=== PATIENT | female | born 1930 | race Caucasian/White ===

== ENCOUNTER 2016-04-24 18:54 | Inpatient (IN) | payer MEDICARE, OTHER ==
[~2016-04-24] VITALS: Ht 165.1 cm; Wt 61.2 kg
[~2016-04-24 18:54] MED LIST: HYDR-3816 PO; PRD20T PO
[2016-04-24] MEDS ORDERED: methylPREDNISolone 125 MG (Solu-MEDROL) VIAL ONE (19:07)
[2016-04-24] MEDS ORDERED: methylPREDNISolone 125 MG (Solu-MEDROL) VIAL IVP ONE (19:15)
[2016-04-24] MEDS ORDERED: RT-ALBUTEROL/IPRATROPIUM 3 ML (DUONEB) VIAL INH ONE (19:15)
--- NOTE | 2016-04-24 19:17 | ED Cough/URI ---
General Chief Complaint: Respiratory Problems Stated Complaint: SOA/COUGH/CONGESTION Nursing Triage Note: PT STATES SOA, COUGH, WHEEZING SINCE YESTERDAY. Source: patient, family Exam Limitations: no limitations History of Present Illness Time seen by provider: 19:19 Initial Comments Brought to ER by her daughter with reports of cough, wheezing, shortness of breath. Patient has been having these symptoms since yesterday and is without fever. Cough is nonproductive. Patient and her daughter are both very concerned because the patient's was just buried today following a brief respiratory illness/pneumonia. She does not wear oxygen at home but she does have a home nebulizer for when necessary use. She most recently used this one hour prior to arrival. Severity/Quality: moderate Associated Symptoms: cough, shortness of breath, wheezing Allergies and Home Medications Allergies Coded Allergies: azithromycin (Verified Allergy, Severe, EDEMA, HIVES, 05/01/15) Home Medications Hydrocodone/Acetaminophen 1 Each Tablet #14 1 EACH PO Q6H PRN PRN PAIN Prescribed by: ANGLE ANDRADE on 05/01/151721 Prednisone 20 Mg Tab #8 20 MG PO BID Take 3 tabs(60mg)daily, decrease by 1/2 tab(10mg)daily. Prescribed by: ANGLE ANDRADE on 05/01/151721 Constitutional: see HPI chillsNo fever EENTM: see HPI Respiratory: see HPI cough short of breath wheezing Cardiovascular: no symptoms reported Genitourinary: no symptoms reported Musculoskeletal: no symptoms reported Skin: no symptoms reported Psychiatric/Neurological: No Symptoms Reported Hematologic/Lymphatic: No Symptoms Reported Immunological/Allergic: no symptoms reported Past Wgpipho-Jmdkhl-Ummzze Hx Patient Social History Alcohol Use: Denies Use Recreational Drug Use: No Smoking Status: Never a Smoker 2nd Hand Smoke Exposure: No Recent Foreign Travel: No Contact w/Someone Who Travel: No Recent Infectious Disease Expo: No Recent Hopitalizations: No Surgeries HX Surgeries: Yes Surgeries: Hysterectomy Respiratory Hx Respiratory Disorders: Yes Respiratory Disorders: COPD Cardiovascular Hx Cardiac Disorders: Yes Cardiac Disorders: High Cholesterol, Hypertension Neurological Hx Neurological Disorders: Yes Neurological Disorders: Stroke Genitourinary Hx Genitourinary Disorders: No Gastrointestinal Hx Gastrointestinal Disorders: Yes Gastrointestinal Disorders: Gastroesophageal Reflux Musculoskeletal Hx Musculoskeletal Disorders: Yes (restless leg syndrome) Endocrine Hx Endocrine Disorders: No HEENT HX ENT Disorders: No Cancer Hx Cancer: No Psychosocial Hx Psychiatric Problems: Yes Behavioral Health Disorders: Anxiety Family Medical History Significant Family History: No Pertinent Family Hx Physical Exam Vital Signs Vital Sign - Last 12Hours 04/24/16 19:12 Temp 97.2 Pulse 86 Resp 26 B/P 178/83 Pulse Ox 98 O2 Delivery Nasal Cannula O2 Flow Rate 2 Capillary Refill : Less Than 3 Seconds General Appearance: WD/WN no apparent distress Eyes: Bilateral Eye EOMI, Bilateral Eye Normal Inspection, Bilateral Eye PERRL HEENT: PERRL/EOMI normal ENT inspection Neck: non-tender full range of motion Respiratory: no respiratory distress no accessory muscle use decreased breath sounds wheezing Cardiovascular: regular rate, rhythm no murmur Gastrointestinal: normal bowel sounds non tender soft Neurologic/Psychiatric: alert normal mood/affect oriented x 3 Skin: normal color warm/dry Progress/Results/Core Measures Results/Orders Lab Results Laboratory Tests Test 04/24/16 19:10 04/24/16 19:15 Range/Units Alanine Aminotransferase (ALT/SGPT) 38 0-55 U/L Albumin 3.8 3.2-4.5 G/DL Alkaline Phosphatase 60 40-136 U/L Anion Gap 11 5-14 MMOL/L Aspartate Amino Transf (AST/SGOT) 29 5-34 U/L B-Type Natriuretic Peptide 103.1 H <100.0 PG/ML BUN/Creatinine Ratio 21 Basophils # (Auto) 0.0 0.0-0.1 10^3/uL Basophils (%) (Auto) 0 0-10 % Blood Urea Nitrogen 16 7-18 MG/DL Calcium Level 9.5 8.5-10.1 MG/DL Carbon Dioxide Level 24 21-32 MMOL/L Chloride Level 99 98-107 MMOL/L Creatinine 0.77 0.60-1.30 MG/DL Eosinophils # (Auto) 0.2 0.0-0.3 10^3/uL Eosinophils (%) (Auto) 2 0-10 % Estimat Glomerular Filtration Rate > 60 Glucose Level 111 H 70-105 MG/DL Hematocrit 32 L 35-52 % Hemoglobin 10.8 L 11.5-16.0 G/DL Lymphocytes # (Auto) 0.7 L 1.0-4.0 X 10^3 Lymphocytes (%) (Auto) 8 L 12-44 % Mean Corpuscular Hemoglobin 30 25-34 PG Mean Corpuscular Hemoglobin Concent 34 32-36 G/DL Mean Corpuscular Volume 90 80-99 FL Mean Platelet Volume 9.1 7.4-10.4 FL Monocytes # (Auto) 0.9 0.0-1.0 X 10^3 Monocytes (%) (Auto) 11 0-12 % Neutrophils # (Auto) 6.4 1.8-7.8 X 10^3 Neutrophils (%) (Auto) 78 H 42-75 % Platelet Count 221 130-400 10^3/uL Potassium Level 3.9 3.6-5.0 MMOL/L Red Blood Count 3.59 L 4.35-5.85 10^6/uL Red Cell Distribution Width 14.8 H 10.0-14.5 % Sodium Level 134 L 135-145 MMOL/L Total Bilirubin 0.8 0.1-1.0 MG/DL Total Protein 6.4 6.4-8.2 G/DL Troponin I < 0.30 <0.30 NG/ML White Blood Count 8.3 4.3-11.0 10^3/uL Isma Test YES-POS Arterial Blood Base Excess 5.5 H -2.5-2.5 MMOL/L Arterial Blood HCO3 30 H 23-27 MMOL/L Arterial Blood Oxygen Saturation 99 94-100 % Arterial Blood Partial Pressure CO2 42 35-45 MMHG Arterial Blood Partial Pressure O2 104 H 79-93 MMHG Arterial Blood Total CO2 30.9 21.0-31.0 MMOL/L Arterial Blood pH 7.46 H 7.37-7.43 Blood Gas Inspired Oxygen 2L Blood Gas Patient Temperature 97.2 Blood Gas Puncture Site LT RAD Blood Gas Ventilator Setting NO My Orders Orders-PATY ALEX OPHTHALMIC PHOTOGRAPHER Cbc With Automated Diff (04/24/16 19:11) Comprehensive Metabolic Panel (04/24/16 19:11) Ua Culture If Indicated (04/24/16 19:11) Troponin I (04/24/16 19:11) BNP (04/24/16 19:11) Chest 1 View, Ap/Pa Only (04/24/16 19:11) Methylprednisolone Sod Succ (Solu-Medrol (04/24/16 19:15) Albuterol/Ipra Inhalation Soln (Duoneb I (04/24/16 19:15) Svn Sm Volume Nebulizer Rt-Rfs (04/24/16 19:11) Arterial Blood Gas (04/24/16 19:17) Ondansetron Injection (Zofran Injectio (04/24/16 19:30) Ondansetron Injection (Zofran Injectio (04/24/16 19:24) Albuterol Pre-Mix Nebs (Rt) (Proventil P (04/24/16 19:30) Svn Sm Volume Nebulizer Rt-Rfs (04/24/16 19:27) Albuterol Pre-Mix Nebs (Rt) (Proventil P (04/24/16 19:26) Ekg Tracing (04/24/16 19:36) Continuous Ekg Monitoring (04/24/16 19:36) Ketorolac Injection (Toradol Injection) (04/24/16 19:45) Ketorolac Injection (Toradol Injection) (04/24/16 19:44) Lorazepam Tablet (Ativan Tablet) (04/24/16 20:00) Lorazepam Tablet (Ativan Tablet) (04/24/16 19:47) Ceftriaxone Injection (Rocephin Injectio (04/24/16 20:00) Medications Given in ED Current Medications Medications Dose Ordered Sig/Jono Route Start Time Stop Time Status Last Admin Dose Admin Albuterol/ Ipratropium 6 ml ONCE ONCE INH 04/24/16 19:15 04/24/16 19:16 DC 04/24/16 19:20 6 ML Methylprednisolone Sodium Succinate 125 mg ONCE ONCE IVP 04/24/16 19:15 04/24/16 19:16 DC 04/24/16 19:12 125 MG Ondansetron HCl 4 mg ONCE ONCE IVP 04/24/16 19:30 04/24/16 19:31 DC 04/24/16 19:27 4 MG Vital Signs/I&O Vital Sign - Last 12Hours 04/24/16 04/24/16 04/24/16 19:12 19:20 19:32 Temp 97.2 Pulse 86 Resp 26 B/P 178/83 Pulse Ox 98 99 99 O2 Delivery Nasal Cannula O2 Flow Rate 2 3 3 Blood Pressure Mean: 114 Diagnostic Imaging Diagonstic Imaging: Xray Plain Films/CT/US/NM/MRI: chest Comments NAME: BANDAR [facility]INDRES [facility] REC#: [id number] PT STATUS: REG ER : 1930 PHYSICIAN: PATY ALEX APRN ADMIT DATE: 04/24/16/ER Draft Date of Exam:04/24/16 CHEST 1 VIEW, AP/PA ONLY INDICATION: Dyspnea, history of COPD. DISCUSSION: Single portable upright view of the chest was obtained, comparison 06/19/2014. No adverse interval change. Stable normal heart size. No focal consolidation, pleural fluid, or pneumothorax. Degenerative changes are again noted within the bilateral shoulders. IMPRESSION: 1. No acute cardiopulmonary process. Dictated on workstation # [id number] Dict: 04/24/161927 Trans: 04/24/161929 [id number] Interpreted by: CARLA BONILLA MD Electronically signed by: Departure Communication Time/Spoke to Admitting Phy: 19:57 Communication Discussed the case with Dr. Ledbetter who agrees to admit patient observation status, Progress Notes 1933-wheezing and shortness of breath significantly improved after 2 DuoNeb back -to-back however some wheezing does persist. 2 more albuterol given. 15 mg IV Toradol given for pain across her shoulders, neck and thighs she states is from tension due to her 's today. Family is very apprehensive about sending the patient home given father's recent and fatal illness with a similar presentation. Patient reports she feels anxious which is not uncommon for her. Patient does take Ativan 0.5 mg by mouth twice a day when necessary anxiety per the EMR at [facility]. I will give her a dose of this here.O2 remains 97% on 2 liters, was 94% on room air but felt that the O2 helped. ABG does not show hypercapnia or need for NIPPV. Impression Impression: Primary Impression: COPD exacerbation Disposition: ADMITTED INPATIENT Condition: Stable Decision to Admit Reason: Admit from ER (General) Decision to Admit/Date: Apr 24, 2016 Departure-Patient Inst. Referrals: SHELBY MARTIN MD (PCP/Family) Primary Care Physician PATY ALEX APRN Apr 24, 2016 19:17
[2016-04-24 19:18] LABS: BASOPHILS % (AUTO) 0 % (0-10); EOSINOPHILS # (AUTO) 0.2 10^3/uL (0.0-0.3); EOSINOPHILS % (AUTO) 2 % (0-10); LYMPHOCYTES # (AUTO) 0.7 X 10^3 (1.0-4.0); LYMPHOCYTES % (AUTO) 8 % (12-44); MEAN CORPUSCULAR HEMOGLOBIN 30 PG (25-34); MEAN CORPUSCULAR HGB CONC 34 G/DL (32-36); MEAN CORPUSCULAR VOLUME 90 FL (80-99); MEAN PLATELET VOLUME 9.1 FL (7.4-10.4); MONOCYTES # (AUTO) 0.9 X 10^3 (0.0-1.0); MONOCYTES % (AUTO) 11 % (0-12); NEUTROPHILS # (AUTO) 6.4 X 10^3 (1.8-7.8); NEUTROPHILS % (AUTO) 78 % (42-75); PLATELET COUNT 221 10^3/uL (130-400); RED BLOOD COUNT 3.59 10^6/uL (4.35-5.85); RED CELL DISTRIBUTION WIDTH 14.8 % (10.0-14.5); WHITE BLOOD COUNT 8.3 10^3/uL (4.3-11.0)
[2016-04-24 19:21] LABS: ABG BASE EXCESS 5.5 MMOL/L (-2.5-2.5); ABG HCO3 30 MMOL/L (23-27); ABG OXYGEN SATURATION 99 % (94-100); ABG PCO2 42 MMHG (35-45); ABG PH 7.46 (7.37-7.43); ABG PO2 104 MMHG (79-93); ABG TCO2 30.9 MMOL/L (21.0-31.0)
[2016-04-24 19:23] LABS: ALLENS TEST YES-POS; PATIENT TEMP 97.2
[2016-04-24] MEDS ORDERED: ONDANSETRON 4 MG/2 ML (SDV) Z0FRAN ONE (19:24)
[2016-04-24] MEDS ORDERED: RT-ALBUTEROL SULF 2.5 MG/3 ML PRE-MIX VIAL ONE (19:26)
[2016-04-24] MEDS ORDERED: RT-ALBUTEROL SULF 2.5 MG/3 ML PRE-MIX VIAL INH SCH (19:30)
[2016-04-24] MEDS ORDERED: ONDANSETRON 4 MG/2 ML (SDV) Z0FRAN IVP ONE (19:30)
--- NOTE | 2016-04-24 19:30 | Diagnostic Imaging Report ---
INDICATION: Dyspnea, history of COPD. DISCUSSION: Single portable upright view of the chest was obtained, comparison 06/19/2014. No adverse interval change. Stable normal heart size. No focal consolidation, pleural fluid, or pneumothorax. Degenerative changes are again noted within the bilateral shoulders. IMPRESSION: 1. No acute cardiopulmonary process. Dictated by: Dictated on workstation # [id number]
[2016-04-24 19:39] LABS: TROPONIN I < 0.30 NG/ML (<0.30)
[2016-04-24 19:40] LABS: ALANINE AMINOTRANSFERASE 38 U/L (0-55); ALBUMIN 3.8 G/DL (3.2-4.5); ANION GAP 11 MMOL/L (5-14); ASPARTATE AMINO TRANSFERASE 29 U/L (5-34); BILIRUBIN,TOTAL 0.8 MG/DL (0.1-1.0); BLOOD UREA NITROGEN 16 MG/DL (7-18); BUN/CREATININE RATIO 21; CALCIUM 9.5 MG/DL (8.5-10.1); CARBON DIOXIDE 24 MMOL/L (21-32); CHLORIDE 99 MMOL/L (98-107); CREATININE SERUM 0.77 MG/DL (0.60-1.30); GFR ESTIMATED > 60; GLUCOSE 111 MG/DL (70-105); POTASSIUM 3.9 MMOL/L (3.6-5.0); SODIUM 134 MMOL/L (135-145); TOTAL PROTEIN 6.4 G/DL (6.4-8.2)
[2016-04-24] MEDS ORDERED: KETOROLAC 30 MG/ML VIAL ONE (19:44)
[2016-04-24] MEDS ORDERED: KETOROLAC 15 MG/ML VIAL IVP ONE (19:45)
[2016-04-24] MEDS ORDERED: LORazepam 0.5 MG (ATIVAN) TABLET ONE (19:47)
[2016-04-24] MEDS ORDERED: LORazepam 0.5 MG (ATIVAN) TABLET PO ONE (20:00)
[2016-04-24] MEDS ORDERED: cefTRIAXone INJECTION 1,000 MG in NS (IVPB) 50 ML IV ONE (20:00)
[2016-04-24] MEDS ORDERED: BENZONATATE 100 MG (TESSALON) CAPSULE PO SCH (20:30)
[2016-04-24] MEDS ORDERED: morphine INJ 10 MG/ML 1ML (SYR OR VIAL) IVP ONE ×2 (20:30→22:45)
[2016-04-24 21:15] VITALS: BP 151/68
[2016-04-24] MEDS ORDERED: LORazepam 0.5 MG (ATIVAN) TABLET PO PRN (21:30)
[2016-04-24] MEDS ORDERED: rOPINIRole 1 MG (REQUIP) TABLET ONE (21:53)
[2016-04-24] MEDS ORDERED: MIRTAZAPINE 15 MG (REMERON) TAB ONE (21:53)
[2016-04-25] VITALS (7 sets, daily range): BP systolic 140–174; BP diastolic 63–77
[2016-04-25] MEDS ORDERED: RT-ALBUTEROL/IPRATROPIUM 3 ML (DUONEB) VIAL INH PRN (01:15)
[2016-04-25] MEDS: RT-ALBUTEROL/IPRATROPIUM 3 ML (DUONEB) VIAL INH SCH ×6 (02:14→22:17)
[2016-04-25] MEDS: methylPREDNISolone 40 MG/ML (Solu-MEDROL) VIAL IV SCH ×3 (03:52→18:34)
[2016-04-25 06:15] LABS: BASOPHILS % (AUTO) 0 % (0-10); EOSINOPHILS % (AUTO) 0 % (0-10); LYMPHOCYTES # (AUTO) 0.3 X 10^3 (1.0-4.0); LYMPHOCYTES % (AUTO) 4 % (12-44); MEAN CORPUSCULAR HEMOGLOBIN 30 PG (25-34); MEAN CORPUSCULAR HGB CONC 33 G/DL (32-36); MEAN CORPUSCULAR VOLUME 90 FL (80-99); MEAN PLATELET VOLUME 8.9 FL (7.4-10.4); MONOCYTES # (AUTO) 0.1 X 10^3 (0.0-1.0); MONOCYTES % (AUTO) 1 % (0-12); NEUTROPHILS # (AUTO) 7.7 X 10^3 (1.8-7.8); NEUTROPHILS % (AUTO) 95 % (42-75); PLATELET COUNT 203 10^3/uL (130-400); RED BLOOD COUNT 3.52 10^6/uL (4.35-5.85); RED CELL DISTRIBUTION WIDTH 14.9 % (10.0-14.5); WHITE BLOOD COUNT 8.1 10^3/uL (4.3-11.0)
[2016-04-25 06:33] LABS: ANISOCYTOSIS SLIGHT; BAND NEUTROPHILS 2 %; BASOPHILS % (MANUAL) 0 %; EOSINOPHILS % (MANUAL) 0 %; LYMPHOCYTES % (MANUAL) 2 %; NEUTROPHILS % (MANUAL) 95 %
[2016-04-25] MEDS ORDERED: DIPH1TAB PO (08:22)
[2016-04-25] MEDS ORDERED: CLOP75TA69 PO (08:22)
[2016-04-25] MEDS ORDERED: PANT40TA3 PO (08:22)
[2016-04-25] MEDS ORDERED: ASPI325T32 PO (08:22)
[2016-04-25] MEDS ORDERED: BUSP10TA95 PO (08:22)
[2016-04-25] MEDS ORDERED: CITA40TA19 PO (08:22)
[2016-04-25] MEDS ORDERED: TAMS0.4C98 PO (08:22)
[2016-04-25] MEDS ORDERED: MULT-52 PO (08:22)
[2016-04-25] MEDS ORDERED: ALBU2.5V4 NEB ×2 (08:22→08:46)
[2016-04-25] MEDS ORDERED: CHOL10007 PO (08:22)
[2016-04-25] MEDS ORDERED: BUDE10.2 IH (08:22)
[2016-04-25] MEDS ORDERED: RAMI10CA PO (08:22)
[2016-04-25] MEDS ORDERED: HYDR-3922 PO ×2 (08:22→08:46)
[2016-04-25] MEDS ORDERED: VIT1TAB.9 PO (08:22)
[2016-04-25] MEDS ORDERED: LORA-404 PO ×2 (08:22→08:46)
[2016-04-25] MEDS ORDERED: METO100T2 PO (08:22)
[2016-04-25] MEDS ORDERED: FLUT16SP22 NS ×2 (08:22→08:46)
[2016-04-25] MEDS ORDERED: MIRT15TA PO (08:46)
[2016-04-25] MEDS ORDERED: CALC500T7 PO (08:46)
[2016-04-25] MEDS ORDERED: DEXT30SU5 PO (08:46)
[2016-04-25] MEDS ORDERED: HYDR-3730 PO (08:46)
[2016-04-25] MEDS ORDERED: POLY17PO6 PO (08:46)
[2016-04-25] MEDS ORDERED: TRIA0.2581 PO (08:46)
[2016-04-25] MEDS ORDERED: ONDN4T PO (08:46)
[2016-04-25] MEDS ORDERED: TRAM50TA2 PO (08:46)
[2016-04-25] MEDS ORDERED: LOVA40TA2 PO (08:46)
[2016-04-25] MEDS ORDERED: NYST1000 PO (08:46)
[2016-04-25] MEDS ORDERED: ROPI0.5T2 PO ×2 (08:46)
[2016-04-25] MEDS ORDERED: RT-ALBUTEROL SULF 2.5 MG/3 ML PRE-MIX VIAL IH PRN (09:45)
[2016-04-25] MEDS ORDERED: FLUTICASONE NASAL SPRAY (FLONASE) 16 GM BTL NS PRN (09:45)
[2016-04-25] MEDS ORDERED: NYSTATIN ORAL SUSP 5 ML UDC PO PRN (09:45)
[2016-04-25] MEDS ORDERED: POLYETHYLENE GLYCOL 17 GM (MIRALAX) PACK PO PRN (09:45)
--- NOTE | 2016-04-25 10:46 | Consultation-Cardiology ---
HPI-Cardiology Cardiology Consultation: Date of Consultation 04/25/16 Date of Admission 04-24-16 Attending Physician María Elena Ledbetter DO Admitting Physician Salinas Menjivar MD Consulting Physician Aileen Marin MD HPI: Chief Complaint: Shortness of breath Ms. Colindres is an 85 year old female admitted to 414 from the ED. She reports she has not been feeling well for a few days. She reports increasing shortness of breath, cough, nausea and generally feeling unwell. She states yesterday was her husbands and she progressively felt more weak and fatigued. She states she continues to feel short of breath and generally unwell. No c/o CP, palpitations, syncope or near syncope. No c/o LE edema. No diarrhea. No c /o fever or chills. Review of Systems-Cardiology Review of Systems Constitutional: As described under HPI Eyes: No blurred vision, No drainage, No pain, No vision change Ears/Nose/Throat: No ear discharge, No ear pain, No nasal drainage, No ulcerations Respiratory: As described under HPI Cardiovascular: As described under HPI Gastrointestinal: No constipation, No diarrhea, nauseaNo vomiting, No stool coloration changes Genitourinary: No dysuria, No discharge, No frequency, No hematuria, No urgency Skin: No rash, No skin related problems, No ulcerations Psychiatric/Neurological: No anxiety, No depression, No focal weakness, No seizure, No syncope Hematologic: No bleeding abnormalities NXE-Xbgfes-Qtrreu Hx Patient Social History Alcohol Use: Denies Use Recreational Drug Use: No Smoking Status: Never a Smoker 2nd Hand Smoke Exposure: No Recent Foreign Travel: No Recent Infectious Disease Expo: No Hospitalization with Isolation: Denies Physical Abuse Screen: No Sexual Abuse: No Immunizations Up To Date Date of Pneumonia Vaccine: Feb 20, 2004 Date of Influenza Vaccine: Nov 26, 2015 Past Medical History PMH As described under Assessment. Family Medical History Family Medical History: No reported family h/o CAD. Allergies and Home Medications Allergies Coded Allergies: azithromycin (Verified Allergy, Severe, EDEMA, HIVES, 05/01/15) Home Medications Albuterol Sulfate 2.5 Mg/3 Ml Vial.neb 2.5 MG NEB 0700,1500 (Reported) Albuterol Sulfate 2.5 Mg/3 Ml Vial.neb 2.5 MG NEB DAILY PRN PRN SHORTNESS OF BREATH (Reported) Aspirin 325 Mg Tablet.dr 325 MG PO BID (Reported) Budesonide/Formoterol Fumarate 10.2 Gm Hfa.aer.ad 2 PUFF IH BID (Reported) Buspirone HCl 10 Mg Tablet 10 MG PO BID (Reported) Calcium Carbonate 200 Mg Tab.chew 2 TAB.CHEW PO Q4H PRN PRN INDIGESTION ( Reported) Cholecalciferol (Vitamin D3) 1,000 Unit Capsule 1,000 UNIT PO DAILY (Reported) Citalopram Hydrobromide 40 Mg Tablet 40 MG PO DAILY (Reported) Clopidogrel Bisulfate 75 Mg Tablet 75 MG PO DAILY (Reported) Dextromethorphan Polistirex 30 Mg/5 Ml Edith.er.12h 10 ML PO Q12H PRN PRN COUGH ( Reported) Diphenoxylate HCl/Atropine 1 Each Tablet 1 TAB PO BID (Reported) Fluticasone Propionate 16 Gm Maxie.susp 1 SPRAY NS DAILY (Reported) Fluticasone Propionate 16 Gm Maxie.susp 1 SPRAY NS HS PRN PRN CONGESTION ( Reported) Hydralazine HCl 10 Mg Tablet 10 MG PO TID (Reported) Hydralazine HCl 10 Mg Tablet 10 MG PO Q6H PRN PRN SBP>160 (Reported) Hydrocodone/Acetaminophen 1 Each Tablet 1 TAB PO Q4H PRN PRN HIP PAIN (Reported ) Lorazepam 0.5 Mg Tablet 0.5 MG PO BID (Reported) Lorazepam 0.5 Mg Tablet 0.5 MG PO Q8H PRN PRN ANXIETY/AGITATION (Reported) Lovastatin 40 Mg Tablet 40 MG PO HS (Reported) Metoprolol Tartrate 100 Mg Tablet 100 MG PO BID (Reported) Mirtazapine 15 Mg Tablet 7.5 MG PO HS (Reported) TAKES 1/2 (15MG) TABLET Multivitamins with Iron 1 Each Tablet 1 TAB PO DAILY (Reported) Nystatin 100,000 Unit/1 Ml Oral.susp 5 ML PO QID PRN PRN MOUTH PAIN/SORES ( Reported) SWISH AND SPIT Ondansetron HCl 4 Mg Tab 4 MG PO Q6H PRN PRN NAUSEA (Reported) Pantoprazole Sodium 40 Mg Tablet.dr 40 MG PO DAILY (Reported) Polyethylene Glycol 3350 17 Gm Powd.pack 17 GM PO DAILY PRN PRN CONSTIPATION ( Reported) Ramipril 10 Mg Capsule 10 MG PO DAILY (Reported) Ropinirole HCl 0.5 Mg Tablet 1 MG PO HS (Reported) TAKES 2 (0.5MG) TABLETS Ropinirole HCl 0.5 Mg Tablet 0.5-1 MG PO EVERY EVENING PRN PRN LEG PAIN ( Reported) Tamsulosin HCl 0.4 Mg Cap 0.4 MG PO BID (Reported) Tramadol HCl 50 Mg Tablet 50 MG PO Q4H PRN PRN PAIN (Reported) Triazolam 0.25 Mg Tablet 0.5 MG PO HS (Reported) TAKES 2 (0.25MG) TABLETS Vit C/E/Zinc/Lutein/Zeaxanthin 1 Each Tab.chew 2 TAB.CHEW PO 0800,1300 (Reported ) Physical Exam-Cardiology Physical Exam Vital Signs/I&O Vital Sign - Last 12Hours 04/25/16 04/25/16 04/25/16 04/25/16 06:18 08:00 08:00 10:18 Temp 98.2 Pulse 110 Resp 24 B/P 152/76 Pulse Ox 97 97 92 97 O2 Delivery Nasal Cannula Nasal Cannula O2 Flow Rate 3.00 2.00 3.00 2.00 04/25/16 04/25/16 04/25/16 04/25/16 11:31 11:33 12:00 13:00 Temp 100.6 Pulse 97 90 117 115 Resp 20 B/P 174/77 Pulse Ox 94 O2 Delivery Nasal Cannula O2 Flow Rate 3.00 04/25/16 14:16 Pulse Ox 96 O2 Flow Rate 2.00 Capillary Refill : Less Than 3 Seconds Constitutional: appears stated ageNo apparent distress, well-developed well- nourished HEENT: PERRLNo discharge, hearing is well preserved oral hygience is goodNo ulceration, No xanthelasmas are seen Neck: No carotid bruit, carotid pulses are 2 + bilaterally Respiratory: No accessory muscle use, No respiratory distress, wheezing ( scattered) other (diminished bases bilat) Cardiovascular: regular rate-rhythmNo JVD, S1 and S2 systolic murmur Gastrointestinal: No tender, soft roundNo spleenomegaly Rectal: deferred Extremities: No clubbing, No cyanosis, No significant edema Neurologic/Psychiatric: alert oriented x 3 power is 5/5 both on sides Skin: No rash, No ulcerations Data Review Labs Laboratory Tests 04/24/16 19:10: Alanine Aminotransferase (ALT/SGPT) 38, Albumin 3.8, Alkaline Phosphatase 60, Anion Gap 11, Aspartate Amino Transf (AST/SGOT) 29, B-Type Natriuretic Peptide 103.1H, BUN/Creatinine Ratio 21, Basophils # (Auto) 0.0, Basophils (%) (Auto) 0 , Blood Urea Nitrogen 16, Calcium Level 9.5, Carbon Dioxide Level 24, Chloride Level 99, Creatinine 0.77, Eosinophils # (Auto) 0.2, Eosinophils (%) (Auto) 2, Estimat Glomerular Filtration Rate > 60, Glucose Level 111H, Hematocrit 32L, Hemoglobin 10.8L, Lymphocytes # (Auto) 0.7L, Lymphocytes (%) (Auto) 8L, Mean Corpuscular Hemoglobin 30, Mean Corpuscular Hemoglobin Concent 34, Mean Corpuscular Volume 90, Mean Platelet Volume 9.1, Monocytes # (Auto) 0.9, Monocytes (%) (Auto) 11, Neutrophils # (Auto) 6.4, Neutrophils (%) (Auto) 78H, Platelet Count 221, Potassium Level 3.9, Red Blood Count 3.59L, Red Cell Distribution Width 14.8H, Sodium Level 134L, Total Bilirubin 0.8, Total Protein 6.4, Troponin I < 0.30, White Blood Count 8.3 04/24/16 19:15: Isma Test YES-POS, Arterial Blood Base Excess 5.5H, Arterial Blood HCO3 30H, Arterial Blood Oxygen Saturation 99, Arterial Blood Partial Pressure CO2 42, Arterial Blood Partial Pressure O2 104H, Arterial Blood Total CO2 30.9, Arterial Blood pH 7.46H, Blood Gas Inspired Oxygen 2L, Blood Gas Patient Temperature 97.2, Blood Gas Puncture Site LT RAD, Blood Gas Ventilator Setting NO 04/25/16 05:55: Basophils # (Auto) 0.0, Basophils (%) (Auto) 0, Eosinophils # (Auto) 0.0, Eosinophils (%) (Auto) 0, Hematocrit 32L, Hemoglobin 10.5L, Lymphocytes # (Auto ) 0.3L, Lymphocytes (%) (Auto) 4L, Mean Corpuscular Hemoglobin 30, Mean Corpuscular Hemoglobin Concent 33, Mean Corpuscular Volume 90, Mean Platelet Volume 8.9, Monocytes # (Auto) 0.1, Monocytes (%) (Auto) 1, Neutrophils # (Auto ) 7.7, Neutrophils (%) (Auto) 95H, Platelet Count 203, Red Blood Count 3.52L, Red Cell Distribution Width 14.9H, White Blood Count 8.1, Anisocytosis SLIGHT, Band Neutrophils 2, Basophils % (Manual) 0, Eosinophils % (Manual) 0, Lymphocytes % (Manual) 2, Monocytes % (Manual) 1, Neutrophils % (Manual) 95 Radiology NAME: BANDAR COLINDRES [facility] REC#: [id number] PT STATUS: REG ER : 1930 PHYSICIAN: PATY ALEX CARD LACER ADMIT DATE: 04/24/16/ER Signed Date of Exam: 04/24/16 CHEST 1 VIEW, AP/PA ONLY INDICATION: Dyspnea, history of COPD. DISCUSSION: Single portable upright view of the chest was obtained, comparison 06/19/2014. No adverse interval change. Stable normal heart size. No focal consolidation, pleural fluid, or pneumothorax. Degenerative changes are again noted within the bilateral shoulders. IMPRESSION: 1. No acute cardiopulmonary process. Dictated by: Dictated on workstation # [id number] Dict: 04/24/161927 Trans: 04/24/161945 [id number] Interpreted by: CARLA BONILLA MD Electronically signed by:CARLA BONILLA MD 04/24/161947 ECG Impression ECG Initial ECG Rhythm: Normal Sinus A/P-Cardiology Assessment/Admission Diagnosis Dyspnea with general malaise Acute exacerbation of COPD - medical and pulmonary services managing HTN HLP - followed by her PCP Dr. Menjivar Anxiety Reports h/o valvular heart disease diagnosed by Dr. Marin - exact details unknown Reports h/o CVA approx 5 years ago - details unknown Discussion and Recomendations Dyspnea of undetermined etiology. Reports h/o heart valve disease which was previously followed by Dr. Marin. She has not f/u with cardiology services since he moved from the area. Exact details of valve disease are unknown. We will try to obtain records. We will do an echocardiogram to evaluate structure. She reports she had a stress test in 2014 prior to hip surgery. We will try to obtain records. She has hypertension, her home meds have already been resumed. Continue current regimen. Monitor lab closely. Further recommendations will be based on her hospital course. We would like to thank Dr. Ledbetter for this consult. This consult is being scribed by Alexis Ho APRN on behalf of Dr. Marin after discussion regarding plan of care. Clinical Quality Measures DVT/VTE Risk/Contraindication: Risk Factor Score Per Nursin RFS Level Per Nursing on Admit: 4+=Very High Physician Assessment Physician Assessment Lungs: good bilat air entry Cor: reg with faint GERMAN A&R * As documented in our note above * I answered her CV-related questions * Will check echo * Monitor labs KENDRA HO MILL CONTROL OPERATOR Apr 25, 2016 10:46 AILEEN MARIN MD FACP FAC CCDS Apr 25, 2016 16:26
--- NOTE | 2016-04-25 10:53 | History & Physical-Hospitalist ---
HPI History of Present Illness: HPI/Chief Complaint CC: SOB HPI: This is an 85yoWF pt of Dr. Martin'jessica that presented to ER with wheezing and SOB following of her . CXR was negative for infiltrate. She was placed in hospital for IV steroids and Neb treatments. Chart Review: WBC 8.1 Hgb 10.5 ABG 7.46/42/104 Patient Interview: Pt recognizes Dr. Mosqueda from [facility]. Pt states that she still feels very congested and with a sore throat. Pt states that she has much anxiety due to the recent burial of her . Pt has not had any anxiety meds this morning. Pt has a dry cough. Physical exam reveals wheezing improved. Pt uses Symbicort at home, two puffs BID. Pt does not use O2 at home. Pt previously saw a Education Instructor for general check-ups, but she no longer does. Pt sees an Van Owner Operator regularly, and states that her eyes hurt currently. Pt family will bring her eye drops. Pt states that she would like to go home after DC. Pt states that she previously had similar symptoms and was prescribed 500mg QID , which then took multiple weeks to resolve. Scribed by Mitch Eason under the direct supervision of Dr. Mosqueda. Source: patient Exam Limitations: other (anxiousness) Date Seen 04/25/16 Attending Physician María Elena Mosqueda DO PCP Salinas Martin MD Referring Physician Date of Admission Apr 24, 2016 at 20:09 Home Medications & Allergies Home Medications Reviewed patient Home Medication Reconciliation Form Allergies Coded Allergies: azithromycin (Verified Allergy, Severe, EDEMA, HIVES, 05/01/15) Past Xmsyjri-Dgdmnm-Mafwdn Hx Patient Social History Marrital Status: Employed/Student: retired Alcohol Use: Denies Use Recreational Drug Use: No Smoking Status: Never a Smoker 2nd Hand Smoke Exposure: No Physical Abuse Screen: No Sexual Abuse: No Recent Foreign Travel: No Contact w/other who traveled: No Recent Hopitalizations: No Recent Infectious Disease Expo: No Immunizations Up To Date Date of Pneumonia Vaccine: Feb 20, 2004 Date of Influenza Vaccine: Nov 26, 2015 Seasonal Allergies Seasonal Allergies: No Surgeries HX Surgeries: Yes Surgeries: Hysterectomy Respiratory Hx Respiratory Disorders: Yes Respiratory Disorders: Asthma Cardiovascular Hx Cardiovascular Disorders: Yes Cardiac Disorders: Coronary Artery Disease, High Cholesterol, Hypertension Neurological Hx Neurological Disorders: Yes Neurological Disorders: Stroke Reproductive System : No MANUFACTURING EXECUTIVE Hx: Hysterectomy Genitourinary Hx Genitourinary Disorders: Yes Genitourinary Disorders: Bladder Infection, Neurogenic Bladder Gastrointestinal Hx Gastrointestinal Disorders: Yes Gastrointestinal Disorders: Gastroesophageal Reflux, Chronic Constipation Musculoskeletal Hx Musculoskeletal Disorders: Yes (restless leg syndrome) Endocrine Hx Endocrine Disorders: No HEENT HX ENT Disorders: No Cancer Hx Cancer: No Psychosocial Hx Psychiatric Problems: Yes Behavioral Health Disorders: Anxiety, Depression Integumentary HX Skin/Integumentary Disorder: No Blood Transfusions Hx Blood Disorders: No Reviewed Nursing Assessment Reviewed/Agree w Nursing PMH: Yes Family Medical History Significant Family History: No Pertinent Family Hx Review of Systems Constitutional: see HPI EENTM: no symptoms reported Respiratory: cough short of breath wheezing Cardiovascular: no symptoms reported Gastrointestinal: no symptoms reported Genitourinary: no symptoms reported Musculoskeletal: no symptoms reported Skin: no symptoms reported Psychiatric/Neurological: Anxiety Depressed All Other Systems Reviewed Negative Unless Noted: Yes Physical Exam Physical Exam Vital Signs Vital Sign - Last 12Hours 04/24/16 19:12 Temp 97.2 Pulse 86 Resp 26 B/P 178/83 Pulse Ox 98 O2 Delivery Nasal Cannula O2 Flow Rate 2 Capillary Refill : Less Than 3 Seconds General Appearance: WD/WN Chronically ill Mild Distress (due to anxiousness) Eyes: Bilateral Eye Normal Inspection, Bilateral Eye PERRL HEENT: PERRL/EOMI Normal ENT Inspection Pharynx Normal Neck: Full Range of Motion Normal Inspection Non Tender Supple Carotid Bruit Respiratory: Chest Non Tender No Accessory Muscle Use No Respiratory Distress Crackles Decreased Breath Sounds Wheezing Cardiovascular: Regular Rate, Rhythm No Edema No Gallop No JVD No Murmur Normal Peripheral Pulses Gastrointestinal: Normal Bowel Sounds No Organomegaly No Pulsatile Mass Non Tender Soft Back: Normal Inspection No CVA Tenderness No Vertebral Tenderness Extremity: Normal Capillary Refill Normal Inspection Normal Range of Motion Non Tender No Calf Tenderness No Pedal Edema Neurologic/Psychiatric: Alert Oriented x3 No Motor/Sensory Deficits Depressed Affect Skin: Normal Color Warm/Dry Lymphatic: No Adenopathy Results Results/Procedures Lab Laboratory Tests 04/24/16 19:10 04/25/16 05:55 Assessment/Plan Admission Diagnosis Assessment: SOB and wheezing with CXR negative for infiltrate COPD Anxiety Depression Hypertension Restless leg syndrome GERD Chronic constipation Chronic pain Hyperlipidemia CAD on Plavix Assessment and Plan Plan: Consult Cardiology and pulmonary Echocardiogram Home O2 eval Switch to in-patient status Reconciled multiple home meds May need senior behavioral unit evaluation IV steroids Nebulizers Oxygen Copy Copies To 1: SALINAS MARTIN MD Clinical Quality Measures DVT/VTE Risk/Contraindication: Risk Factor Score Per Nursin RFS Level Per Nursing on Admit: 4+=Very High MARÍA ELENA MOSQUEDA DO Apr 25, 2016 10:53
[2016-04-25] MEDS: LORazepam 0.5 MG (ATIVAN) TABLET PO PRN ×2 (10:54→18:35)
[2016-04-25] MEDS ORDERED: ONDANSETRON 4 MG (ZOFRAN) ORAL DISSOLVE TAB PO PRN (11:15)
[2016-04-25] MEDS ORDERED: RT-ALBUTEROL SULF 2.5 MG/3 ML PRE-MIX VIAL IH SCH (15:00)
[2016-04-25] MEDS: HYDROcodone/APAP 7.5 MG/325 MG (LORTAB, LORCET PLUS) TABLET PO PRN (18:35)
[2016-04-25] MEDS: ALFUZOSIN HCL 10 MG TAB (UROXATRAL) PO SCH (18:35)
[2016-04-25] MEDS: RT-ADVAIR HFA 115/21 MCG PER PUFF IH SCH (18:55)
[2016-04-25] MEDS: cefTRIAXone INJECTION 1,000 MG in NS (IVPB) 50 ML IV SCH (20:04)
[2016-04-25] MEDS: DIPHENOXYLATE/ATROPINE 2.5MG/0.025MG (LOMOTIL) TAB PO SCH (20:04)
[2016-04-25] MEDS: meTOprolol TARTRATE 50 MG (LOPRESSOR) TAB PO SCH (20:05)
[2016-04-25] MEDS: ASPIRIN E.C. 325 MG (ECOTRIN) TABLET PO SCH (20:05)
[2016-04-25] MEDS: busPIRone 10 MG (BUSPAR) TAB PO SCH (20:05)
[2016-04-25] MEDS ORDERED: SIMvastatin 20 MG (ZOCOR) TAB PO SCH (21:00)
[2016-04-25] MEDS ORDERED: rOPINIRole 0.25 MG (REQUIP) TAB PO PRN (21:00)
[2016-04-25] MEDS ORDERED: MIRTAZAPINE 15 MG (REMERON) TAB PO SCH ×2 (21:00)
[2016-04-25] MEDS ORDERED: rOPINIRole 1 MG (REQUIP) TABLET PO SCH ×2 (21:00)
[2016-04-25] MEDS ORDERED: TEMAZEPAM 15 MG (RESTORIL) CAP PO SCH (21:00)
[2016-04-25] MEDS: LORazepam 0.5 MG (ATIVAN) TABLET PO SCH (21:40)
[2016-04-26] VITALS: BP 122/56
[2016-04-26] MEDS: RT-ALBUTEROL/IPRATROPIUM 3 ML (DUONEB) VIAL INH SCH ×6 (02:27→22:33)
[2016-04-26] MEDS: methylPREDNISolone 40 MG/ML (Solu-MEDROL) VIAL IV SCH ×3 (03:36→18:38)
[2016-04-26] MEDS: RT-ADVAIR HFA 115/21 MCG PER PUFF IH SCH ×2 (07:06→18:34)
[2016-04-26 07:11] LABS: BASOPHILS % (AUTO) 0 % (0-10); EOSINOPHILS % (AUTO) 0 % (0-10); LYMPHOCYTES # (AUTO) 0.4 X 10^3 (1.0-4.0); LYMPHOCYTES % (AUTO) 3 % (12-44); MEAN CORPUSCULAR HEMOGLOBIN 30 PG (25-34); MEAN CORPUSCULAR HGB CONC 33 G/DL (32-36); MEAN CORPUSCULAR VOLUME 91 FL (80-99); MEAN PLATELET VOLUME 9.1 FL (7.4-10.4); MONOCYTES # (AUTO) 0.6 X 10^3 (0.0-1.0); MONOCYTES % (AUTO) 6 % (0-12); NEUTROPHILS # (AUTO) 10.1 X 10^3 (1.8-7.8); NEUTROPHILS % (AUTO) 91 % (42-75); PLATELET COUNT 231 10^3/uL (130-400); RED BLOOD COUNT 3.61 10^6/uL (4.35-5.85); WHITE BLOOD COUNT 11.2 10^3/uL (4.3-11.0)
[2016-04-26 07:17] LABS: ALANINE AMINOTRANSFERASE 37 U/L (0-55); ALBUMIN 3.7 G/DL (3.2-4.5); ANION GAP 9 MMOL/L (5-14); ASPARTATE AMINO TRANSFERASE 29 U/L (5-34); BILIRUBIN,TOTAL 0.5 MG/DL (0.1-1.0); BLOOD UREA NITROGEN 17 MG/DL (7-18); BUN/CREATININE RATIO 22; CALCIUM 9.7 MG/DL (8.5-10.1); CARBON DIOXIDE 28 MMOL/L (21-32); CHLORIDE 96 MMOL/L (98-107); CHOLESTEROL 155 MG/DL (< 200); CREATININE SERUM 0.77 MG/DL (0.60-1.30); DIRECT LDL 76 MG/DL (1-129); GFR ESTIMATED > 60; GLUCOSE 130 MG/DL (70-105); MAGNESIUM 1.9 MG/DL (1.8-2.4); SODIUM 133 MMOL/L (135-145); TOTAL PROTEIN 6.5 G/DL (6.4-8.2); TRIGLYCERIDES 50 MG/DL (<150); VLDL CHOLESTEROL 10 MG/DL (5-40)
[2016-04-26 07:40] LABS: THYROID STIMULATING HORMONE 0.35 UIU/ML (0.35-4.94)
[2016-04-26 08:00] VITALS: BP 153/67
--- NOTE | 2016-04-26 08:17 | ECHOCARDIOGRAPHY REPORT ---
PROCEDURE PHYSICIAN: BERTA MARIN DATE OF PROCEDURE: 04/25/2016 TWO DIMENSIONAL ECHOCARDIOGRAM REPORT PRIMARY PHYSICIAN: Dr. Menjivar OTHER PHYSICIAN: Dr. Marin REFERRING PHYSICIAN: ORDERING PHYSICIAN: Dr. Ledbetter INDICATION FOR THE PROCEDURE: 1. Shortness of breath. 2. History of valvular heart disease. MEASUREMENTS DERIVED VALUES LV DIAMETER (LAX) NORMALS NORMALS Diastolic 3.8 (3.6-5.2) Eject. Fract. (60%+/-6%) Systolic (2.3-3.9) Diastolic Vol. % Shortening (0.22-0.42) Systolic Vol. Aortic Root 2.7 IVS THICKNESS Diastolic 1 (0.6-1.1) LVPW THICKNESS Diastolic 1 (0.6-1.1) LA DIAMETER Systolic 3 (2.1-3.7) DESCRIPTION: Two-dimensional echocardiography shows normal global left ventricular systolic function with normal regional wall motion. Aortic, mitral and tricuspid valve leaflets show good leaflet excursion. There is mild mitral annular calcification. There is mild aortic valve sclerosis. There is no significant pericardial effusion. Doppler imaging shows trivial mitral and tricuspid regurgitation. There is no Doppler evidence of any significant valvular stenosis. Pulmonary artery systolic pressure is estimated to be approximately 30 to 35 mmHg. Good subcostal views are not available. This study is not adequate for evaluation of intracardiac shunt. CONCLUSIONS: 1. Normal global left ventricular systolic function with an ejection fraction of approximately 65%. 2. Trivial mitral and tricuspid regurgitation. 3. Mild aortic valve sclerosis and mitral annular calcification without evidence of significant valvular stenosis. 4. Pulmonary artery systolic pressure is estimated to be 30 to 35 mmHg. Job ID: [id number] Dictated Date: 04/25/2016 18:33:33 Financial Services Associate Date: 04/26/2016 08:13:03 / zachary
[2016-04-26] MEDS: LORazepam 0.5 MG (ATIVAN) TABLET PO SCH ×2 (08:58→18:40)
[2016-04-26] MEDS: PANTOPRAZOLE 40 MG (PROTONIX) TAB PO SCH (08:58)
[2016-04-26] MEDS: FLUTICASONE NASAL SPRAY (FLONASE) 16 GM BTL NS SCH (08:58)
[2016-04-26] MEDS: ASPIRIN E.C. 325 MG (ECOTRIN) TABLET PO SCH ×2 (08:58→18:38)
[2016-04-26] MEDS: CLOPIDOGREL 75 MG (PLAVIX) TABLET PO SCH (08:58)
[2016-04-26] MEDS: DIPHENOXYLATE/ATROPINE 2.5MG/0.025MG (LOMOTIL) TAB PO SCH ×2 (08:59→18:39)
[2016-04-26] MEDS: busPIRone 10 MG (BUSPAR) TAB PO SCH ×2 (08:59→18:40)
[2016-04-26] MEDS: RAMIPRIL 5 MG (ALTACE) CAP PO SCH (08:59)
[2016-04-26] MEDS: meTOprolol TARTRATE 50 MG (LOPRESSOR) TAB PO SCH ×2 (09:01→18:40)
--- NOTE | 2016-04-26 09:02 | Progress Note-Cardiology ---
Cardiology SOAP Progress Note Subjective: Sitting up on the side of the bed. States she feels better this morning. Daughter at the bedside. C/O non-productive cough. No c/o CP, palpitations. Objective: I&O/Vital Signs Vital Sign - Last 12Hours 04/26/16 04/26/16 04/26/16 04/26/16 00:00 01:00 02:27 04:00 Temp 97.9 Pulse 100 88 Resp 18 18 B/P 122/56 Pulse Ox 97 97 O2 Delivery Nasal Cannula O2 Flow Rate 2.00 2.00 04/26/16 04/26/16 04/26/16 04/26/16 07:05 08:00 08:00 10:38 Temp 98.3 Pulse 97 Resp 20 B/P 153/67 Pulse Ox 97 95 98 O2 Delivery Nasal Cannula Nasal Cannula O2 Flow Rate 2.00 2.00 2.00 2.00 04/26/16 11:35 Pulse Ox 98 O2 Flow Rate 2.00 Intake and Output 04/26/16 00:00 Intake Total 1480 ml Balance 1480 ml Weight (Pounds): 135 Weight (Ounces): 0.0 Weight (Calculated Kilograms): 61.535190 Constitutional: appears stated ageNo apparent distress, well-developed well- nourished Respiratory: No accessory muscle use, No respiratory distress, lungs clear to auscultation wheezing (scattered) Cardiovascular: regular rate-rhythmNo JVD, S1 and S2 Gastrointestional: No tender, soft roundNo spleenomegaly Extremities: No clubbing, No cyanosis, No significant edema Neurologic/Psychiatric: alert oriented x 3 power is 5/5 both on sides Skin: No rash, No ulcerations Results/Procedures: Labs Laboratory Tests 04/26/16 06:34: Alanine Aminotransferase (ALT/SGPT) 37, Albumin 3.7, Alkaline Phosphatase 56, Anion Gap 9, Aspartate Amino Transf (AST/SGOT) 29, BUN/Creatinine Ratio 22, Basophils # (Auto) 0.0, Basophils (%) (Auto) 0, Blood Urea Nitrogen 17, Calcium Level 9.7, Carbon Dioxide Level 28, Chloride Level 96L, Cholesterol Level 155, Creatinine 0.77, Eosinophils # (Auto) 0.0, Eosinophils (%) (Auto) 0, Estimat Glomerular Filtration Rate > 60, Glucose Level 130H, HDL Cholesterol 55, Hematocrit 33L, Hemoglobin 10.7L, LDL Cholesterol Direct 76, Lymphocytes # (Auto ) 0.4L, Lymphocytes (%) (Auto) 3L, Magnesium Level 1.9, Mean Corpuscular Hemoglobin 30, Mean Corpuscular Hemoglobin Concent 33, Mean Corpuscular Volume 91, Mean Platelet Volume 9.1, Monocytes # (Auto) 0.6, Monocytes (%) (Auto) 6, Neutrophils # (Auto) 10.1H, Neutrophils (%) (Auto) 91H, Platelet Count 231, Potassium Level 5.0, Red Blood Count 3.61L, Red Cell Distribution Width 15.0H, Sodium Level 133L, Thyroid Stimulating Hormone (TSH) 0.35, Total Bilirubin 0.5, Total Protein 6.5, Triglycerides Level 50, VLDL Cholesterol 10, White Blood Count 11.2H A/P: Assessment: Dyspnea with general malaise Acute exacerbation of COPD - medical and pulmonary services managing HTN HLP - followed by her PCP Dr. Menjivar Anxiety Normal global left ventricular systolic function with an ejection fraction of approximately 65%. Trivial mitral and tricuspid regurgitation. Mild aortic valve sclerosis and mitral annular calcification without evidence of significant valvular stenosis. Pulmonary artery systolic pressure is estimated to be 30 to 35 mmHg. Per echocardiogram of 3-7-17 Reports h/o CVA approx 5 years ago - details unknown Plan: Dyspnea of undetermined etiology - being managed by medical services Results of echocardiogram discussed with her and her daughter Continue current regimen Cardiac status clinically stable OK to discharge home from cardiac stand point with outpt f/u in 4-6 weeks Physician Assessment Physician Assessment Lungs: good bilat air entry Cor: reg A&R * As documented in our note above * I spoke with her and her daughter and answered questions KENDRA MACDONALD Apr 26, 2016 09:02 BERTA PEOPLES MD [facility] Apr 26, 2016 11:58
--- NOTE | 2016-04-26 11:53 | Progress Note-Hospitalist ---
Progress Note HPI/CC on Admission CC: SOB HPI: This is an 85yoWF pt of Dr. Michele that presented to ER with wheezing and SOB following of her . CXR was negative for infiltrate. She was placed in hospital for IV steroids and Neb treatments. Chart Review: WBC 8.1 Hgb 10.5 ABG 7.46/42/104 Patient Interview: Pt recognizes Dr. Ledbetter from [facility]. Pt states that she still feels very congested and with a sore throat. Pt states that she has much anxiety due to the recent burial of her . Pt has not had any anxiety meds this morning. Pt has a dry cough. Physical exam reveals wheezing improved. Pt uses Symbicort at home, two puffs BID. Pt does not use O2 at home. Pt previously saw a Creative Producer for general check-ups, but she no longer does. Pt sees an Billing Specialist regularly, and states that her eyes hurt currently. Pt family will bring her eye drops. Pt states that she would like to go home after DC. Pt states that she previously had similar symptoms and was prescribed 500mg QID , which then took multiple weeks to resolve. Scribed by Mitch Eason under the direct supervision of Dr. Ledbetter. Progress Notes/Assess & Plan Date Seen 04/26/16 Admission Dx/Process Assessment: SOB and wheezing with CXR negative for infiltrate COPD Anxiety Depression Hypertension Restless leg syndrome GERD Chronic constipation Chronic pain Hyperlipidemia CAD on Plavix Diagonsis/Assessment & Plan Chart Review: No fever since noon yesterday at 100.6 WBC 11.2 up from 8.1 due to steroids Na+ 133 Pt on Advair, Solumedrol, Rocephin, along with long list of home meds Patient Interview: Pt states that she feels much better today. Physical exam stable. Wheezing sounds reduced from yesterday. Pt's daughter has concerns regarding COPD and Dr. Ledbetter discusses treatment plans. Pt states that she normally uses a cane to ambulate at home. Pt does not feel like she needs rehab. Pt requests meds at 6pm instead of 8pm. Pt's last BM was Sunday night. Pt requests that Dr. Ledbetter be her PCP, and Dr. Ledbetter informs pt that current PCP is very capable and pt would lose continuity if she switched PCPs at this point. No fever, vital signs stable, pleasant, improved, daughter at bedside Regular rate and rhythm, much improved wheezing only in the upper lobes down at the end expiratory phase No edema Laboratory Tests 04/26/16 06:34 Assessment: SOB and wheezing with CXR negative for infiltrate w/elevated BNP prompting cardiology evaluation and pulmonary evaluation placed on Rocephin empirically COPD Anxiety Depression Hypertension Restless leg syndrome GERD Chronic constipation Chronic pain Hyperlipidemia CAD on Plavix Plan: Meds given at 6pm instead of 8pm, per pt request. Miralax Increase ambulation PT Home O2 eval Advair, Solumedrol, and Rocephin Consult Cardiology and pulmonary Reconciled multiple home meds May need senior behavioral unit evaluation Nebulizers Oxygen Scribed by Mitch Eason under the direct supervision of Dr. Ledbetter. KHANG LEDBETTER DO Apr 26, 2016 11:53
[2016-04-26 12:00] VITALS: BP 140/65
--- NOTE | 2016-04-26 12:01 | Physical Therapy Evaluation ---
PT Evaluation-General Medical Diagnosis Admission Date Apr 25, 2016 at 10:17 Medical Diagnosis: weakness Onset Date: Apr 24, 2016 Therapy Diagnosis Therapy Diagnosis: impaired mobility, endurance Height/Weight Height (Feet): 5 Height (Inches): 5.00 Weight (Pounds): 135 Weight (Ounces): 0.0 Precautions Precautions/Isolations: Fall Prevention, Standard Precautions Referral Physician: María Elena Ledbetter DO Reason for Referral: Evaluation/Treatment Medical History Pertinent Medical History: CAD, CVA, GERD, HTN Additional Medical History asthma, high cholesterol, bladder infection, neurogenic bladder, chronic constipation, RLS, anxiety, depression, hysterectomy Current History Patient went to ER with wheezing and SOB Reviewed History: Yes Social History Home: Assisted Living Current Living Status: Alone Entry Into Home: Level Entry Prior/Core FIM Prior Level of Function Functional Meagher Measure 0=Not Assessed/NA 4=Minimal Assistance 1=Total Assistance 5=Supervision or Setup 2=Maximal Assistance 6=Modified Meagher 3=Moderate Assistance 7=Complete Meagher Bed Mobility: 6 Transfers (B,C,W/C) (FIM): 6 Gait: 6 Patient uses a single point cane PT Evaluation-Current Subjective Patient sitting EOB just finishing up with OT, agrees to PT, patient has no complaints of pain. Pt/Family Goals to be independent at home Objective Patient Orientation: Normal For Age Attachments: Oxygen 2L of O2 nasal canula ROM/Strength ROM Lower Extremities WNL Strenght Lower Extremities 4+/5 gross bilateral lower extremities Neuromuscular (Tone, Coordination, Reflexes) WNL Sensory Vision: Functional Hearing: Functional Sensation Right Lower Extremit: Intact Sensation Left Lower Extremity: Intact Transfers Functional Meagher Measure 0=Not Assessed/NA 4=Minimal Assistance 1=Total Assistance 5=Supervision or Setup 2=Maximal Assistance 6=Modified Meagher 3=Moderate Assistance 7=Complete Meagher Transfers (B, C, W/C) (FIM): 4 Sit to/from Stand: 4 CGA for sit to stand Gait Mode of Locomotion: Walk Anticipated Mode of Locomotion: Walk Gait (FIM): 4 Distance: 250' Gait Level of Assist: 4 Gait Persons Needed: 1 Gait Assistive Device: Cane Single Point Comments/Gait Description CGA, patient had to take a standing rest break several times to catch her breath , cues for purse lip breathing Balance Sitting Static: Normal Sitting Dynamic: Normal Standing Static: Good Standing Dynamic: Good Assessment/Needs Patient has impairments in mobility and poor endurance. Left patient sitting at the edge of the bed, she states she has no trouble getting back into bed, but she was going to sit for now and order her lunch. Rehab Potential: Fair PT Gathering Worker Goals Correction Goals PT Gathering Worker Goals Time Frame: May 03, 2016 Transfers (B,C,W/C) (FIM): 5 Gait (FIM): 5 Distance: 300' Gait Level of Assist: 5 Gait Assistive Device: Cane Single Point PT Plan Problem List Problem List: Activity Tolerance, Functional Strength, Safety, Balance, Gait, Transfer, Bed Mobility Treatment/Plan Treatment Plan: Continue Plan of Care Treatment Plan: Bed Mobility, Education, Functional Activity Carmelo, Functional Strength, Gait, Safety, Therapeutic Exercise, Transfers Treatment Duration: May 03, 2016 # of days/week 5-6 Visits Per Week: 5-6 Minutes/Day (M-F): 15-30 Minutes/Day (Sat/Clement): 15-30 Pt/Family Agrees w/Plan: Yes Safety Risks/Education Patient Education: Gait Training, Transfer Techniques, Safety Issues Teaching Recipient: Patient Teaching Methods: Demonstration, Discussion Response to Teaching: Reinforcement Needed Discharge Recommendations Plan Patient will perform bed mobility and transfers, balance and endurance training , functional strengthening, stair training, gait training, and education, to improve functional mobility and independence at home. Therapy D/C Recommendations: Assisted Living, Home w/ Family Support Time/GCodes Time In: 1145 Time Out: 1200 Total Billed Treatment Time: 15 Total Billed Treatment 1 visit EVL 15 min PT/OT Therapy GCodes Therapy Functional Limitation: Physical Therapy Test(s)/Tool used to determine: Level of Assistance Scale Functional Limitation-Current Charge Code: MOBCUR Modifier: CI Functional Limitation-Goal Charge Code: MOBPUJA Modifier: CI KINJAL GARCIA PT Apr 26, 2016 12:01
--- NOTE | 2016-04-26 13:39 | Pulmonary Consultation ---
History of Present Illness History of Present Illness Date of Consultation 04/26/16 13:36 Date of Admission History of Present Illness 85yo admitted from ED secondary to increasing SOB, cough, and nausea. No c/o CP , palpitations, syncope or near syncope. No c/o LE edema. No diarrhea. No c/ o fever or chills. I am consulted for pulmonary management. Allergies and Home Medications Allergies Coded Allergies: azithromycin (Verified Allergy, Severe, EDEMA, HIVES, 05/01/15) Home Medications Albuterol Sulfate 2.5 Mg/3 Ml Vial.neb, 2.5 MG NEB 0700,1500, (Reported) Albuterol Sulfate 2.5 Mg/3 Ml Vial.neb, 2.5 MG NEB DAILY PRN for SHORTNESS OF BREATH, (Reported) Amoxicillin/Potassium Clav 1 Each Tablet, 1 EACH PO BID, #10 Prescribed by: KHANG MOSQUEDA on 04/27/16 1105 Aspirin 325 Mg Tablet.dr, 325 MG PO BID, (Reported) Budesonide/Formoterol Fumarate 10.2 Gm Hfa.aer.ad, 2 PUFF IH BID, (Reported) Buspirone HCl 10 Mg Tablet, 10 MG PO BID, (Reported) Calcium Carbonate 200 Mg Tab.chew, 2 TAB.CHEW PO Q4H PRN for INDIGESTION, ( Reported) Cholecalciferol (Vitamin D3) 1,000 Unit Capsule, 1,000 UNIT PO DAILY, (Reported) Citalopram Hydrobromide 40 Mg Tablet, 40 MG PO DAILY, (Reported) Clopidogrel Bisulfate 75 Mg Tablet, 75 MG PO DAILY, (Reported) Dextromethorphan Polistirex 30 Mg/5 Ml Edith.er.12h, 10 ML PO Q12H PRN for COUGH, (Reported) Diphenoxylate HCl/Atropine 1 Each Tablet, 1 TAB PO BID, (Reported) Fluticasone Propionate 16 Gm Bowler.susp, 1 SPRAY NS DAILY, (Reported) Fluticasone Propionate 16 Gm Bowler.susp, 1 SPRAY NS HS PRN for CONGESTION, ( Reported) Hydralazine HCl 10 Mg Tablet, 10 MG PO TID, (Reported) Hydralazine HCl 10 Mg Tablet, 10 MG PO Q6H PRN for SBP>160, (Reported) Hydrocodone/Acetaminophen 1 Each Tablet, 1 TAB PO Q4H PRN for HIP PAIN, #15 Prescribed by: KHANG MOSQUEDA on 04/27/161104 Lorazepam 0.5 Mg Tablet, 0.5 MG PO Q8H PRN for ANXIETY/AGITATION, (Reported) Lorazepam 0.5 Mg Tablet, 0.5 MG PO BID, #10 Prescribed by: KHANG MOSQUEDA on 04/27/161104 Lovastatin 40 Mg Tablet, 40 MG PO HS, (Reported) Metoprolol Tartrate 100 Mg Tablet, 100 MG PO BID, (Reported) Mirtazapine 15 Mg Tablet, 7.5 MG PO HS, (Reported) TAKES 1/2 (15MG) TABLET Multivitamins with Iron 1 Each Tablet, 1 TAB PO DAILY, (Reported) Nystatin 100,000 Unit/1 Ml Oral.susp, 5 ML PO QID PRN for MOUTH PAIN/SORES, ( Reported) SWISH AND SPIT Ondansetron HCl 4 Mg Tab, 4 MG PO Q6H PRN for NAUSEA, (Reported) Pantoprazole Sodium 40 Mg Tablet.dr, 40 MG PO DAILY, (Reported) Polyethylene Glycol 3350 17 Gm Powd.pack, 17 GM PO DAILY PRN for CONSTIPATION, ( Reported) Prednisone 10 Mg Tab.ds.pk, 10 MG PO DAILY, #42 Take 6 tabs(60mg)daily,decrease by 1 tab(10mg)every other day. Prescribed by: KHANG MOSQUEDA on 04/27/161104 Ramipril 10 Mg Capsule, 10 MG PO DAILY, (Reported) Ropinirole HCl 0.5 Mg Tablet, 1 MG PO HS, (Reported) TAKES 2 (0.5MG) TABLETS Ropinirole HCl 0.5 Mg Tablet, 0.5-1 MG PO EVERY EVENING PRN for LEG PAIN, ( Reported) Tamsulosin HCl 0.4 Mg Cap, 0.4 MG PO BID, (Reported) Tramadol HCl 50 Mg Tablet, 50 MG PO Q4H PRN for PAIN, #15 Prescribed by: KHANG MOSQUEDA on 04/27/161104 Triazolam 0.25 Mg Tablet, 0.5 MG PO HS, #10 TAKES 2 (0.25MG) TABLETS Prescribed by: KHANG MOSQUEDA on 04/27/161104 Vit C/E/Zinc/Lutein/Zeaxanthin 1 Each Tab.chew, 2 TAB.CHEW PO 0800,1300, ( Reported) Past Hrxmcep-Wabekm-Xkktar Hx Patient Social History Alcohol Use: Denies Use Recreational Drug Use: No Smoking Status: Never a Smoker 2nd Hand Smoke Exposure: No Recent Foreign Travel: No Contact w/Someone Who Travel: No Recent Infectious Disease Expo: No Recent Hopitalizations: No Physical Abuse Screen: No Sexual Abuse: No Immunizations Up To Date Date of Pneumonia Vaccine: Feb 20, 2004 Date of Influenza Vaccine: Nov 26, 2015 Seasonal Allergies Seasonal Allergies: No Surgeries HX Surgeries: Yes Surgeries: Hysterectomy Respiratory Hx Respiratory Disorders: Yes Respiratory Disorders: COPD Cardiovascular Hx Cardiac Disorders: Yes Cardiac Disorders: Coronary Artery Disease, High Cholesterol, Hypertension Neurological Hx Neurological Disorders: Yes Neurological Disorders: Stroke Reproductive System : No Genitourinary Hx Genitourinary Disorders: Yes Genitourinary Disorders: Bladder Infection, Neurogenic Bladder Gastrointestinal Hx Gastrointestinal Disorders: Yes Gastrointestinal Disorders: Gastroesophageal Reflux, Chronic Constipation Musculoskeletal Hx Musculoskeletal Disorders: Yes (restless leg syndrome) Endocrine Hx Endocrine Disorders: No HEENT HX ENT Disorders: No Cancer Hx Cancer: No Psychosocial Hx Psychiatric Problems: Yes Behavioral Health Disorders: Anxiety, Depression Integumentary HX Skin/Integumentary Disorder: No Blood Transfusions Hx Blood Disorders: No Reviewed Nursing Assessment Reviewed/Agree w Nursing PMH: Yes Family Medical History Significant Family History: No Pertinent Family Hx Review of Systems Constitutional: Malaise, Weakness, No: Chills, Fever, Other, Sweats Exam Exam Vital Signs Date Time Temp Pulse Resp B/P Pulse Ox O2 Delivery O2 Flow Rate FiO2 04/26/16 11:35 98 2.00 04/26/16 10:38 98 2.00 04/26/16 08:00 98.3 97 20 153/67 95 Nasal Cannula 2.00 04/26/16 08:00 Nasal Cannula 2.00 04/26/16 07:05 97 2.00 04/26/16 04:00 18 04/26/16 02:27 97 2.00 04/26/16 01:00 88 04/26/16 00:00 97.9 100 18 122/56 97 Nasal Cannula 2.00 04/25/16 22:18 98 2.00 04/25/16 21:00 Nasal Cannula 2.00 04/25/16 19:25 99.5 117 20 144/65 98 Nasal Cannula 3.00 04/25/16 19:20 99.8 04/25/16 19:00 118 04/25/16 18:52 96 2.00 04/25/16 18:49 97 2.00 04/25/16 15:30 99.8 120 20 141/66 97 Nasal Cannula 3.00 04/25/16 14:16 96 2.00 I & O 04/26/16 07:00 Intake Total 1530 ml Balance 1530 ml General Appearance: WD/WN, Chronically ill, Mild Distress (due to anxiousness) HEENT: PERRL/EOMI, Normal ENT Inspection, Pharynx Normal Neck: Full Range of Motion, Normal Inspection, Non Tender, Supple, Carotid Bruit Respiratory: Chest Non Tender, No Accessory Muscle Use, No Respiratory Distress , Crackles, Decreased Breath Sounds, Wheezing Cardiovascular: Regular Rate, Rhythm, No Edema, No Gallop, No JVD, No Murmur, Normal Peripheral Pulses Capillary Refill: Less Than 3 Seconds Gastrointestinal: normal bowel sounds, non tender, soft Extremity: Normal Capillary Refill, Normal Inspection, Normal Range of Motion, Non Tender, No Calf Tenderness, No Pedal Edema Neurologic/Psychiatric: Alert, Oriented x3, No Motor/Sensory Deficits, Depressed Affect Skin: Normal Color, Warm/Dry Lymphatic: No Adenopathy Results Lab Laboratory Tests 04/24/16 19:10 04/25/16 05:55 04/26/16 06:34 Assessment/Plan Assessment/Plan COPDAE -solumedrol -SVNS, advair oxygen -CXR - reviewed Anxiety Depression Clinical Quality Measures DVT/VTE Risk/Contraindication: Risk Factor Score Per Nursin RFS Level Per Nursing on Admit: 4+=Very High BELL VARNER DO Apr 26, 2016 13:38
[2016-04-26] MEDS ORDERED: FLUTICASONE NASAL SPRAY (FLONASE) 16 GM BTL NS PRN (13:45)
[2016-04-26] MEDS ORDERED: rOPINIRole 0.25 MG (REQUIP) TAB PO PRN (14:00)
[2016-04-26] MEDS ORDERED: CATHETER FLUSH 10 ML SYR IV PRN (14:00)
--- NOTE | 2016-04-26 14:48 | Occupational Therapy Eval ---
OT Evaluation-General/PLF Medical Diagnosis Admission Date Apr 25, 2016 at 10:17 Medical Diagnosis: SOA, COPD Onset Date: Apr 24, 2016 Therapy Diagnosis Therapy Diagnosis: Weakness Height/Weight Height (Feet): 5 Height (Inches): 5.00 Weight (Pounds): 135 Weight (Ounces): 0.0 Precautions Precautions/Isolations: Fall Prevention, Standard Precautions Safety Interventions: Reorient-PRN Referral Physician: María Elena Ledbetter DO Referral Reason: Activity Tolerance, Self Care, Evaluation/Treatment, Strengthening/ROM Medical History Pertinent Medical History: CAD, CVA, GERD, HTN Additional Medical History bladder infection, depression, 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 Current History Pt. came to ER after becoming SOA at spouse's proceedings. States that she was having anxiety about this, and developed "bad cough." Reviewed History: Yes Social History Home: Assisted Living Current Living Status: Alone Entry Into Home: Level Entry ADL-Prior Level of Function ADL PLOF Comments Pt. lives in Assisted living facility. Lives in [place] at [facility]. Takes herself to the dining room for her meals, but states that she does also have a small refridgerator in her room. She states that she uses a cane only. Doesn't drive. Her daughter lives close to her. DME/Equipment: Shower DME/Equipment Comments Pt. has a cane and sock aide/dressing stick that she uses to get her socks on and off. Drive Self: No OT Current Status Subjective No pain reported. However, pt. began coughing and this took approximately 1 minute before she resolved. Appearance Pt. in bed. Agrees to work with OT. Respiratory therapy came in at same time to do an oxygen study. Pt. did in fact qualify for home oxygen. Please see respiratory therapist's note. Mental Status/Objective Patient Orientation: Person, Place Current Hand Dominance: Right Upper Extremity ROM WFL Upper Extremity Strength Pt. demonstrates 3+/5 strength bilaterally throughout. ADL-Treatment Functional [place] Measure 0=Not Assessed/NA 4=Minimal Assistance 1=Total Assistance 5=Supervision or Setup 2=Maximal Assistance 6=Modified [place] 3=Moderate Assistance 7=Complete IndependenceIRFPAI Quality Coding Scale 6 Independent with activity with or without an assistive device 5 Patient requires set up or clean up by helper. Patient completes activity by themselves 4 Supervision or touching assist (CGA). [place] provide cues , steadying assist 3 The helper provides less than half the effort to complete the activity 2 The helper provides more than half the effort to complete the activity 1 Dependent. The helper does all the effort to complete an activity 7 Patient refused to complete or attempt activity 9 The patient did not perform the activity before the current illness or injury 88 Not attempted due to Medical conditions or safety concerns Lower Body Dressing (FIM): 2 (Please see note below.) Other Treatments Pt. transferred from supine-sit with SBA. Able to stand and take steps toward HOB with SBA. Respiratory therapy in room and monitored oxygen, which dipped from 94% to 88%. OT asked pt. to doff and don socks. Pt. unable to, as she uses a sock aide and dressing stick from when she had her hip replaced. Pt. then states that she would like a shower. OT offered to assist her to shower. Pt. states that she would like to wait until this evening. PT came in to assess pt. Pt was asked if it was okay for PT to walk with her into the bathroom, but that OT would help her in shower once she was there. Pt. states, "I really would like to rest right now and not shower, but I will do it tonight. " Notified nurse aide that OT offered to assist pt. in shower, but that she would like to do it later. PT took over session at this time. Education OT Patient Education: Modified ADL techniques, Progress toward Goal/Update tx plan, Purpose of tx/functional activities, Reviewed precautions, Rehab process, Transfer techniques Teaching Recipient: Patient Teaching Methods: Demonstration, Discussion Response to Teaching: Verbalize Understanding, Return Demonstration OT Short Term Goals Short Term Goals 1=Demonstrate adherence to instructed precautions during ADL tasks. 2=Patient will verbalize/demonstrate understanding of assistive devices/ modifications for ADL. 3=Patient will improve strength/tolerance for activity to enable patient to perform ADL's. OT [facility] Goals [facility] Goals Time Frame: May 03, 2016 Eating (FIM): 6 Grooming(FIM): 6 Bathing(FIM): 5 Upper Body Dressing(FIM): 5 Lower Body Dressing(FIM): 5 Toileting(FIM): 5 Transfers (B,C,W/C) (FIM): 5 Toilet/Commode Transfer(FIM): 5 Shower Transfer(FIM): 5 Additional Goals: 1-Demonstrate ADL Tasks, 2-Verbalize Understanding, 3- ImproveStrength/Carmelo 1=Demonstrate adherence to instructed precautions during ADL tasks. 2=Patient will verbalize/demonstrate understanding of assistive devices/ modifications for ADL. 3=Patient will improve strength/tolerance for activity to enable patient to perform ADL's. OT Education/Plan Problem List/Assessment Assessment: Decreased Activ Tolerance, Impaired I ADL's, Impaired Self-Care Skills Discharge Recommendations Plan/Recommendations: Continue POC Therapy D/C Recommendations: Assisted Living Equpiment Recommendations-D/C: Bath Chair Barriers to Progress shortness of breath, weakness Target Placement Pt. would like to return to [facility] in [place]. Treatment Plan/Plan of Care Treatment,Training & Education: Yes Patient would benefit from OT for education, treatment and training to promote independence in ADL's, mobility, safety and/or upper extremity function for ADL' s. Plan of Care: ADL Retraining, Functional Mobility, UE Funct Exercise/Act Treatment Duration: May 03, 2016 # of days/week 5-6 Visits Per Week: 5-6 Agreement: Yes Rehab Potential: Fair Time/GCodes Start Time: 11:25 Stop Time: 11:45 Total Time Billed (hr/min): 20 Billed Treatment Time 1, EVMod complexity G-codes- selfcur- CK selfgoal-CI PT/OT Therapy GCodes Therapy Functional Limitation: Physical Therapy Test(s)/Tool used to determine: Level of Assistance Scale Functional Limitation-Current Charge Code: MOBCUR Modifier: CI Functional Limitation-Goal Charge Code: MOBGOAL Modifier: CI TANK HERNANDEZ OT Apr 26, 2016 14:48
[2016-04-26] MEDS: CATHETER FLUSH 10 ML SYR IV SCH ×2 (15:53→22:00)
[2016-04-26] MEDS: HYDROcodone/APAP 7.5 MG/325 MG (LORTAB, LORCET PLUS) TABLET PO PRN (15:57)
[2016-04-26 16:15] VITALS: BP 147/73
[2016-04-26] MEDS ORDERED: SIMvastatin 20 MG (ZOCOR) TAB PO SCH (18:00)
[2016-04-26] MEDS ORDERED: rOPINIRole 1 MG (REQUIP) TABLET PO SCH (18:00)
[2016-04-26] MEDS ORDERED: TEMAZEPAM 15 MG (RESTORIL) CAP PO SCH (18:00)
[2016-04-26] MEDS ORDERED: MIRTAZAPINE 15 MG (REMERON) TAB PO SCH (18:00)
[2016-04-26] MEDS: ALFUZOSIN HCL 10 MG TAB (UROXATRAL) PO SCH (18:38)
[2016-04-26] MEDS: cefTRIAXone INJECTION 1,000 MG in NS (IVPB) 50 ML IV SCH (19:57)
[2016-04-26 20:00] VITALS: BP 131/80
[2016-04-27] VITALS: BP 143/67
[2016-04-27] MEDS: RT-ALBUTEROL/IPRATROPIUM 3 ML (DUONEB) VIAL INH SCH ×3 (02:09→10:27)
[2016-04-27] MEDS: methylPREDNISolone 40 MG/ML (Solu-MEDROL) VIAL IV SCH ×2 (02:47→10:11)
[2016-04-27 04:00] VITALS: BP 155/72
[2016-04-27] MEDS: CATHETER FLUSH 10 ML SYR IV SCH (05:13)
[2016-04-27] MEDS: RT-ADVAIR HFA 115/21 MCG PER PUFF IH SCH (07:32)
[2016-04-27 07:43] LABS: BASOPHILS % (AUTO) 0 % (0-10); EOSINOPHILS % (AUTO) 0 % (0-10); LYMPHOCYTES # (AUTO) 0.7 X 10^3 (1.0-4.0); LYMPHOCYTES % (AUTO) 8 % (12-44); MEAN CORPUSCULAR HEMOGLOBIN 30 PG (25-34); MEAN CORPUSCULAR HGB CONC 33 G/DL (32-36); MEAN CORPUSCULAR VOLUME 91 FL (80-99); MEAN PLATELET VOLUME 9.2 FL (7.4-10.4); MONOCYTES # (AUTO) 0.5 X 10^3 (0.0-1.0); MONOCYTES % (AUTO) 6 % (0-12); NEUTROPHILS # (AUTO) 7.6 X 10^3 (1.8-7.8); NEUTROPHILS % (AUTO) 86 % (42-75); PLATELET COUNT 241 10^3/uL (130-400); RED BLOOD COUNT 3.49 10^6/uL (4.35-5.85); RED CELL DISTRIBUTION WIDTH 14.8 % (10.0-14.5); WHITE BLOOD COUNT 8.8 10^3/uL (4.3-11.0)
[2016-04-27 08:00] VITALS: BP 147/72
[2016-04-27 08:01] LABS: ALANINE AMINOTRANSFERASE 38 U/L (0-55); ALBUMIN 3.4 G/DL (3.2-4.5); ANION GAP 9 MMOL/L (5-14); ASPARTATE AMINO TRANSFERASE 28 U/L (5-34); BILIRUBIN,TOTAL 0.5 MG/DL (0.1-1.0); BLOOD UREA NITROGEN 18 MG/DL (7-18); BUN/CREATININE RATIO 27; CALCIUM 9.4 MG/DL (8.5-10.1); CARBON DIOXIDE 29 MMOL/L (21-32); CHLORIDE 99 MMOL/L (98-107); CREATININE SERUM 0.67 MG/DL (0.60-1.30); GFR ESTIMATED > 60; GLUCOSE 120 MG/DL (70-105); POTASSIUM 4.5 MMOL/L (3.6-5.0); SODIUM 137 MMOL/L (135-145); TOTAL PROTEIN 5.9 G/DL (6.4-8.2)
[2016-04-27] MEDS: ASPIRIN E.C. 325 MG (ECOTRIN) TABLET PO SCH (09:03)
[2016-04-27] MEDS: LORazepam 0.5 MG (ATIVAN) TABLET PO SCH (09:03)
[2016-04-27] MEDS: PANTOPRAZOLE 40 MG (PROTONIX) TAB PO SCH (09:03)
[2016-04-27] MEDS: busPIRone 10 MG (BUSPAR) TAB PO SCH (09:03)
[2016-04-27] MEDS: RAMIPRIL 5 MG (ALTACE) CAP PO SCH (09:03)
[2016-04-27] MEDS: CLOPIDOGREL 75 MG (PLAVIX) TABLET PO SCH (09:03)
[2016-04-27] MEDS: DIPHENOXYLATE/ATROPINE 2.5MG/0.025MG (LOMOTIL) TAB PO SCH (09:04)
[2016-04-27] MEDS: meTOprolol TARTRATE 50 MG (LOPRESSOR) TAB PO SCH (09:04)
[2016-04-27] MEDS: FLUTICASONE NASAL SPRAY (FLONASE) 16 GM BTL NS SCH (09:06)
--- NOTE | 2016-04-27 09:43 | Physical Therapy Daily Note ---
PT Daily Note-Current Subjective Pt reports that she is feeling better today. She just needs to keep getting some rest for a few days. Mental Status Patient Orientation: Normal For Age Attachments: Oxygen 2L/min Transfers Functional [place] Measure 0=Not Assessed/NA 4=Minimal Assistance 1=Total Assistance 5=Supervision or Setup 2=Maximal Assistance 6=Modified [place] 3=Moderate Assistance 7=Complete IndependenceIRFPAI Quality Coding Scale 6 Independent with activity with or without an assistive device 5 Patient requires set up or clean up by helper. Patient completes activity by themselves 4 Supervision or touching assist (CGA). [place] provide cues , steadying assist 3 The helper provides less than half the effort to complete the activity 2 The helper provides more than half the effort to complete the activity 1 Dependent. The helper does all the effort to complete an activity 7 Patient refused to complete or attempt activity 9 The patient did not perform the activity before the current illness or injury 88 Not attempted due to Medical conditions or safety concerns Transfers (B, C, W/C) (FIM): 6 Gait Training Gait (FIM): 5 Distance (FIM): 3=150 ft Distance: 300ft Gait Level of Assist: 5 Gait Persons Needed: 1 Gait Assistive Device: Cane Single Point Wide base of support. Education to slow down and pace her movements to avoid exacerbation of SOB. Assessment Current Status: Good Progress Pt showing progress in tolerance to activity and reduced safety risk during gait. PT Prison Goals Prison Goals PT Prison Goals Time Frame: May 03, 2016 Transfers (B,C,W/C) (FIM): 5 Gait (FIM): 5 Distance: 300' Gait Level of Assist: 5 Gait Assistive Device: Cane Single Point PT Plan Problem List Problem List: Activity Tolerance, Gait Treatment/Plan Treatment Plan: Continue Plan of Care Treatment Plan: Bed Mobility, Education, Functional Activity [place], Functional Strength, Gait, Safety, Therapeutic Exercise, Transfers Treatment Duration: May 03, 2016 Visits Per Week: 5-6 Minutes/Day (M-F): 15-30 Minutes/Day (Sat/Clement): 15-30 Safety Risks/Education Patient Education: Gait Training Time/GCodes Time In: 930 Time Out: 940 Total Billed Treatment Time: 10 Total Billed Treatment visit, gait 10min PT/OT Therapy GCodes Therapy Functional Limitation: Physical Therapy Test(s)/Tool used to determine: Level of Assistance Scale Functional Limitation-Current Charge Code: MOBCUR Modifier: CI Functional Limitation-Goal Charge Code: MOBGOAL Modifier: CI REJI KRISHNAN PT Apr 27, 2016 09:42
--- NOTE | 2016-04-27 10:39 | Pulmonary Progress Note ---
Subjective Subjective/Events-last exam PT feels improved not complicaitons noted. Exam Exam Vital Signs Date Time Temp Pulse Resp B/P Pulse Ox O2 Delivery O2 Flow Rate FiO2 04/27/16 10:28 98 2.00 04/27/16 08:20 Nasal Cannula 2.00 04/27/16 08:00 96.3 88 18 147/72 94 Nasal Cannula 2.00 2.00 04/27/16 07:35 95 2.00 04/27/16 07:32 95 2.00 04/27/16 04:00 97.9 83 20 155/72 98 Nasal Cannula 2.00 04/27/16 02:10 93 2.00 04/27/16 01:00 84 04/27/16 00:00 97.1 85 20 143/67 100 Nasal Cannula 2.00 2.00 04/26/16 22:33 97 2.00 04/26/16 21:00 Nasal Cannula 2.00 04/26/16 20:00 97.1 100 20 131/80 96 Nasal Cannula 2.00 04/26/16 19:00 91 04/26/16 18:35 98 2.00 04/26/16 16:46 98.0 04/26/16 16:15 98.0 103 23 147/73 97 Nasal Cannula 2.00 04/26/16 15:15 97 2.00 04/26/16 13:00 76 04/26/16 12:00 98.0 81 20 140/65 100 Nasal Cannula 2.00 04/26/16 11:35 98 2.00 04/26/16 10:38 98 2.00 I & O 04/27/16 07:00 Intake Total 2685 ml Balance 2685 ml General Appearance: WD/WN, Chronically ill, Mild Distress (due to anxiousness) HEENT: PERRL/EOMI, Normal ENT Inspection, Pharynx Normal Neck: Full Range of Motion, Normal Inspection, Non Tender, Supple, Carotid Bruit Respiratory: Chest Non Tender, No Accessory Muscle Use, No Respiratory Distress , Crackles, Decreased Breath Sounds, Wheezing Cardiovascular: Regular Rate, Rhythm, No Edema, No Gallop, No JVD, No Murmur, Normal Peripheral Pulses Capillary Refill: Less Than 3 Seconds Gastrointestinal: normal bowel sounds, non tender, soft Extremity: Normal Capillary Refill, Normal Inspection, Normal Range of Motion, Non Tender, No Calf Tenderness, No Pedal Edema Neurologic/Psychiatric: Alert, Oriented x3, No Motor/Sensory Deficits, Depressed Affect Skin: Normal Color, Warm/Dry Lymphatic: No Adenopathy Results Lab Laboratory Tests 04/26/16 06:34 04/27/16 07:05 Assessment/Plan Assessment/Plan COPDAE -solumedrol-- change to prednisone taper -SVNS, advair oxygen -CXR - reviewed Anxiety Depression Clinical Quality Measures DVT/VTE Risk/Contraindication: Risk Factor Score Per Nursin RFS Level Per Nursing on Admit: 4+=Very High BELL VARNER DO Apr 27, 2016 10:39
--- NOTE | 2016-04-27 10:50 | Progress Note-Cardiology ---
Cardiology SOAP Progress Note Subjective: Sitting up in bed. Continues to have a lose cough. No c/o CP, palpitations, syncope or near syncope. States she feels better this morning. Objective: I&O/Vital Signs Vital Sign - Last 12Hours 04/27/16 04/27/16 04/27/16 04/27/16 00:00 01:00 02:10 04:00 Temp 97.1 97.9 Pulse 85 84 83 Resp 20 20 B/P 143/67 155/72 Pulse Ox 100 93 98 O2 Delivery Nasal Cannula Nasal Cannula O2 Flow Rate 2.00 2.00 2.00 2.00 04/27/16 04/27/16 04/27/16 04/27/16 07:32 07:35 08:00 08:20 Temp 96.3 Pulse 88 Resp 18 B/P 147/72 Pulse Ox 95 95 94 O2 Delivery Nasal Cannula Nasal Cannula O2 Flow Rate 2.00 2.00 2.00 2.00 2.00 04/27/16 10:28 Pulse Ox 98 O2 Flow Rate 2.00 Intake and Output 04/26/16 23:59 Intake Total 2185 ml Balance 2185 ml Weight (Pounds): 135 Weight (Ounces): 0.0 Weight (Calculated Kilograms): [id number] Constitutional: appears stated ageNo apparent distress, well-developed well- nourished Respiratory: No accessory muscle use, No respiratory distress, lungs clear to auscultation wheezing (scattered) Cardiovascular: regular rate-rhythmNo JVD, S1 and S2 Gastrointestional: No tender, soft roundNo spleenomegaly Extremities: No clubbing, No cyanosis, No significant edema Neurologic/Psychiatric: alert oriented x 3 power is 5/5 both on sides Skin: No rash, No ulcerations Results/Procedures: Labs Laboratory Tests 04/27/16 07:05: Alanine Aminotransferase (ALT/SGPT) 38, Albumin 3.4, Alkaline Phosphatase 54, Anion Gap 9, Aspartate Amino Transf (AST/SGOT) 28, BUN/Creatinine Ratio 27, Basophils # (Auto) 0.0, Basophils (%) (Auto) 0, Blood Urea Nitrogen 18, Calcium Level 9.4, Carbon Dioxide Level 29, Chloride Level 99, Creatinine 0.67, Eosinophils # (Auto) 0.0, Eosinophils (%) (Auto) 0, Estimat Glomerular Filtration Rate > 60, Glucose Level 120H, Hematocrit 32L, Hemoglobin 10.4L, Lymphocytes # (Auto) 0.7L, Lymphocytes (%) (Auto) 8L, Mean Corpuscular Hemoglobin 30, Mean Corpuscular Hemoglobin Concent 33, Mean Corpuscular Volume 91, Mean Platelet Volume 9.2, Monocytes # (Auto) 0.5, Monocytes (%) (Auto) 6, Neutrophils # (Auto) 7.6, Neutrophils (%) (Auto) 86H, Platelet Count 241, Potassium Level 4.5, Red Blood Count 3.49L, Red Cell Distribution Width 14.8H, Sodium Level 137, Total Bilirubin 0.5, Total Protein 5.9L, White Blood Count 8.8 A/P: Assessment: Dyspnea with general malaise Acute exacerbation of COPD - medical and pulmonary services managing HTN HLP - followed by her PCP Dr. Tiara Betancourt Normal global left ventricular systolic function with an ejection fraction of approximately 65%. Trivial mitral and tricuspid regurgitation. Mild aortic valve sclerosis and mitral annular calcification without evidence of significant valvular stenosis. Pulmonary artery systolic pressure is estimated to be 30 to 35 mmHg. Per echocardiogram of 04-25-16 Reports h/o CVA approx 5 years ago - details unknown Plan: Cardiac status clinically stable OK to discharge home from cardiac stand point with outpt f/u in 4-6 weeks Physician Assessment Physician Assessment Lungs: good bilat air entry Cor: reg A&R * As documented in our note above * I spoke with her and answered questions KENDRA MACDONALD [facility] Apr 27, 2016 10:50 BERTA PEOPLES MD [facility] Apr 27, 2016 11:02
[2016-04-27] MEDS ORDERED: TRAM50TA2 PO (11:05)
[2016-04-27] MEDS ORDERED: TRIA0.2581 PO (11:05)
[2016-04-27] MEDS ORDERED: HYDR-3730 PO (11:05)
[2016-04-27] MEDS ORDERED: PRED10TA22 PO (11:05)
[2016-04-27] MEDS ORDERED: LORA-404 PO (11:05)
[2016-04-27] MEDS ORDERED: AMOX-355 PO (11:05)
--- NOTE | 2016-04-27 11:05 | Discharge Summary-Hospitalist ---
Diagnosis/Chief Complaint Date of Admission Apr 25, 2016 at 10:17 Date of Discharge Admission Diagnosis Assessment: SOB and wheezing with CXR negative for infiltrate COPD Anxiety Depression Hypertension Restless leg syndrome GERD Chronic constipation Chronic pain Hyperlipidemia CAD on Plavix Discharge Diagnosis Chart Review: No fever since noon yesterday at 100.6 WBC 11.2 up from 8.1 due to steroids Na+ 133 Pt on Advair, Solumedrol, Rocephin, along with long list of home meds Patient Interview: Pt states that she feels much better today. Physical exam stable. Wheezing sounds reduced from yesterday. Pt's daughter has concerns regarding COPD and Dr. Mosqueda discusses treatment plans. Pt states that she normally uses a cane to ambulate at home. Pt does not feel like she needs rehab. Pt requests meds at 6pm instead of 8pm. Pt's last BM was Sunday night. Pt requests that Dr. Mosqeuda be her PCP, and Dr. Mosqueda informs pt that current PCP is very capable and pt would lose continuity if she switched PCPs at this point. No fever, vital signs stable, pleasant, improved, daughter at bedside Regular rate and rhythm, much improved wheezing only in the upper lobes down at the end expiratory phase No edema Assessment: SOB and wheezing with CXR negative for infiltrate w/elevated BNP prompting cardiology evaluation and pulmonary evaluation placed on Rocephin empirically for bronchitis COPD Anxiety Depression Hypertension Restless leg syndrome GERD Chronic constipation Chronic pain Hyperlipidemia CAD on Plavix Plan: Meds given at 6pm instead of 8pm, per pt request. Miralax Increase ambulation PT Home O2 eval Advair, Solumedrol, and Rocephin Consult Cardiology and pulmonary Reconciled multiple home meds May need senior behavioral unit evaluation Nebulizers Oxygen Scribed by Mitch Eason under the direct supervision of Dr. Mosqueda. Reason Hospital Visit/Course CC: SOB HPI: This is an 85yoWF pt of Dr. Menjivar'jessica that presented to ER with wheezing and SOB following of her . CXR was negative for infiltrate. She was placed in hospital for IV steroids and Neb treatments. Chart Review: WBC 8.1 Hgb 10.5 ABG 7.46/42/104 Patient Interview: Pt recognizes Dr. Mosqueda from [facility]. Pt states that she still feels very congested and with a sore throat. Pt states that she has much anxiety due to the recent burial of her . Pt has not had any anxiety meds this morning. Pt has a dry cough. Physical exam reveals wheezing improved. Pt uses Symbicort at home, two puffs BID. Pt does not use O2 at home. Pt previously saw a Die Attaching Machine Tender for general check-ups, but she no longer does. Pt sees an Senior Oracle Applications Developer regularly, and states that her eyes hurt currently. Pt family will bring her eye drops. Pt states that she would like to go home after DC. Pt states that she previously had similar symptoms and was prescribed 500mg QID , which then took multiple weeks to resolve. Scribed by Mitch Eason under the direct supervision of Dr. Mosqueda. Notes from 04/27/2016: Chart Review: WBC 8.8 Hgb 10.4 K+ 4.5 Na+ 137 sales consultant: Pt has been ambulating. Pt qualified for 2L O2 yesterday. Pt stable for DC. Patient Interview: Pt states that she feels better today. Pt slept very well last night. Pt states that she has a nebulizer at home and the medicine for it. Physical exam stable. Lungs much improved. Pt still coughing. No fever, vital signs stable, pleasant, much improved Regular rate and rhythm, clear to auscultation bilaterally no wheezing is noted in any field and no tachypnea and no cough No edema Plan: DC with 2L home O2 Scribed by Mitch Eason under the direct supervision of Dr. Mosqueda. Hospital course: Patient was admitted through the ER for respiratory insufficiency and severe wheezing. She was a known asthmatic on inhaled corticosteroid and nebulizer treatments but was unaware that she had a lung condition so we did a lot of education while she was here. She was placed on Rocephin empirically for bacterial bronchitis in addition to IV steroids and cardiology was consulted since her multifocal button generator Dr. Marin had retired and she became established with Dr. Varghese through this hospitalization. Home oxygen was evaluated and she met criteria for continuous use and that was ordered. Overall patient improved immensely and was comfortable enough to return back to assisted living on home oxygen and will be on a long taper steroids and cardiology follow-up along with Dr. Rosario follow-up along with Dr. Menjivar primary care provider to support this patient to prevent recurrent hospitalizations. Discharge Summary Discharge Physical Examination Allergies: Coded Allergies: azithromycin (Verified Allergy, Severe, EDEMA, HIVES, 05/01/15) Vitals & I&Os Vital Signs Date Time Temp Pulse Resp B/P Pulse Ox O2 Delivery O2 Flow Rate FiO2 04/27/16 10:28 98 2.00 04/27/16 08:20 Nasal Cannula 04/27/16 08:00 96.3 88 18 147/72 Hospital Course Labs (last 24 hrs) Laboratory Tests 04/27/16 07:05: Alanine Aminotransferase (ALT/SGPT) 38, Albumin 3.4, Alkaline Phosphatase 54, Anion Gap 9, Aspartate Amino Transf (AST/SGOT) 28, BUN/Creatinine Ratio 27, Basophils # (Auto) 0.0, Basophils (%) (Auto) 0, Blood Urea Nitrogen 18, Calcium Level 9.4, Carbon Dioxide Level 29, Chloride Level 99, Creatinine 0.67, Eosinophils # (Auto) 0.0, Eosinophils (%) (Auto) 0, Estimat Glomerular Filtration Rate > 60, Glucose Level 120H, Hematocrit 32L, Hemoglobin 10.4L, Lymphocytes # (Auto) 0.7L, Lymphocytes (%) (Auto) 8L, Mean Corpuscular Hemoglobin 30, Mean Corpuscular Hemoglobin Concent 33, Mean Corpuscular Volume 91, Mean Platelet Volume 9.2, Monocytes # (Auto) 0.5, Monocytes (%) (Auto) 6, Neutrophils # (Auto) 7.6, Neutrophils (%) (Auto) 86H, Platelet Count 241, Potassium Level 4.5, Red Blood Count 3.49L, Red Cell Distribution Width 14.8H, Sodium Level 137, Total Bilirubin 0.5, Total Protein 5.9L, White Blood Count 8.8 Pending Labs Laboratory Tests 04/27/16 07:05: Alanine Aminotransferase (ALT/SGPT) 38, Albumin 3.4, Alkaline Phosphatase 54, Anion Gap 9, Aspartate Amino Transf (AST/SGOT) 28, BUN/Creatinine Ratio 27, Basophils # (Auto) 0.0, Basophils (%) (Auto) 0, Blood Urea Nitrogen 18, Calcium Level 9.4, Carbon Dioxide Level 29, Chloride Level 99, Creatinine 0.67, Eosinophils # (Auto) 0.0, Eosinophils (%) (Auto) 0, Estimat Glomerular Filtration Rate > 60, Glucose Level 120, Hematocrit 32, Hemoglobin 10.4, Lymphocytes # (Auto) 0.7, Lymphocytes (%) (Auto) 8, Mean Corpuscular Hemoglobin 30, Mean Corpuscular Hemoglobin Concent 33, Mean Corpuscular Volume 91, Mean Platelet Volume 9.2, Monocytes # (Auto) 0.5, Monocytes (%) (Auto) 6, Neutrophils # (Auto) 7.6, Neutrophils (%) (Auto) 86, Platelet Count 241, Potassium Level 4.5, Red Blood Count 3.49, Red Cell Distribution Width 14.8, Sodium Level 137, Total Bilirubin 0.5, Total Protein 5.9, White Blood Count 8.8 Discharge Home Medications: Active Scripts Active Augmentin 500-125 Tablet (Amoxicillin/Potassium Clav) 1 Each Tablet 1 Each PO BID Prednisone 10 Mg Tab.ds.pk 10 Mg PO DAILY Take 6 tabs(60mg)daily,decrease by 1 tab(10mg)every other day. Lortab 7.5-325 mg Tablet (Hydrocodone/Acetaminophen) 1 Each Tablet 1 Tab PO Q4H PRN Tramadol HCl 50 Mg Tablet 50 Mg PO Q4H PRN Triazolam 0.25 Mg Tablet 0.5 Mg PO HS TAKES 2 (0.25MG) TABLETS Ativan (Lorazepam) 0.5 Mg Tablet 0.5 Mg PO BID Reported Delsym (Dextromethorphan Polistirex) 30 Mg/5 Ml Edith.er.12h 10 Ml PO Q12H PRN Tums (Calcium Carbonate) 200 Mg Tab.chew 2 Tab.chew PO Q4H PRN Miralax (Polyethylene Glycol 3350) 17 Gm Powd.pack 17 Gm PO DAILY PRN Nystatin 100,000 Unit/1 Ml Oral.susp 5 Ml PO QID PRN SWISH AND SPIT Zofran (Ondansetron HCl) 4 Mg Tab 4 Mg PO Q6H PRN Ativan (Lorazepam) 0.5 Mg Tablet 0.5 Mg PO Q8H PRN Hydralazine HCl 10 Mg Tablet 10 Mg PO Q6H PRN Ropinirole HCl 0.5 Mg Tablet 0.5-1 Mg PO EVERY EVENING PRN Fluticasone Propionate 16 Gm Rodman.susp 1 Rodman NS HS PRN Albuterol Sulfate 2.5 Mg/3 Ml Vial.neb 2.5 Mg NEB DAILY PRN Remeron (Mirtazapine) 15 Mg Tablet 7.5 Mg PO HS TAKES 1/2 (15MG) TABLET Ropinirole HCl 0.5 Mg Tablet 1 Mg PO HS TAKES 2 (0.5MG) TABLETS Lovastatin 40 Mg Tablet 40 Mg PO HS Buspirone HCl 10 Mg Tablet 10 Mg PO BID [facility] (Vit C/E/Zinc/Lutein/Zeaxanthin) 1 Each Tab.chew 2 Tab.chew PO 0800,1300 Daily Multivitamin with Iron (Multivitamins with Iron) 1 Each Tablet 1 Tab PO DAILY Flomax (Tamsulosin HCl) 0.4 Mg Cap 0.4 Mg PO BID Vitamin D3 (Cholecalciferol (Vitamin D3)) 1,000 Unit Capsule 1,000 Unit PO DAILY Ramipril 10 Mg Capsule 10 Mg PO DAILY Metoprolol Tartrate 100 Mg Tablet 100 Mg PO BID Plavix (Clopidogrel Bisulfate) 75 Mg Tablet 75 Mg PO DAILY Celexa (Citalopram Hydrobromide) 40 Mg Tablet 40 Mg PO DAILY Aspirin EC (Aspirin) 325 Mg Tablet.dr 325 Mg PO BID Albuterol Sulfate 2.5 Mg/3 Ml Vial.neb 2.5 Mg NEB 0700,1500 Lomotil 2.5-0.025 mg Tablet (Diphenoxylate HCl/Atropine) 1 Each Tablet 1 Tab PO BID Fluticasone Propionate 16 Gm Rodman.susp 1 Rodman NS DAILY Hydralazine HCl 10 Mg Tablet 10 Mg PO TID Pantoprazole Sodium 40 Mg Tablet.dr 40 Mg PO DAILY Symbicort 160-4.5 Mcg Inhaler (Budesonide/Formoterol Fumarate) 10.2 Gm Hfa.aer.ad 2 Puff IH BID Instructions to patient/family Please see electonic discharge instructions given to patient. Clinical Quality Measures DVT/VTE Risk/Contraindication: Risk Factor Score Per Nursin RFS Level Per Nursing on Admit: 4+=Very High KHANG MOSQUEDA DO Apr 27, 2016 11:05
--- NOTE | 2016-04-27 11:07 | Discharge Instructions ---
Discharge Instructions Discharge Medications New, Converted or Re-Newed RX: Transmitted to Pharmacy New Medications: Amoxicillin/Potassium Clav (Augmentin 500-125 Tablet) 1 Each Tablet 1 EACH PO BID #10 TAB Prednisone (Prednisone) 10 Mg Tab.ds.pk 10 MG PO DAILY Take 6 tabs(60mg)daily,decrease by 1 tab(10mg)every other day. # 42 PKG Continued Medications: Albuterol Sulfate (Albuterol Sulfate) 2.5 Mg/3 Ml Vial.neb 2.5 MG NEB 0700,1500 EA Albuterol Sulfate (Albuterol Sulfate) 2.5 Mg/3 Ml Vial.neb 2.5 MG NEB DAILY PRN SHORTNESS OF BREATH EA Aspirin (Aspirin EC) 325 Mg Tablet.dr 325 MG PO BID TAB Budesonide/Formoterol Fumarate (Symbicort 160-4.5 Mcg Inhaler) 10.2 Gm Hfa.aer.ad 2 PUFF IH BID INHALER Buspirone HCl (Buspirone HCl) 10 Mg Tablet 10 MG PO BID TAB Calcium Carbonate (Tums) 200 Mg Tab.chew 2 TAB.CHEW PO Q4H PRN INDIGESTION TAB Cholecalciferol (Vitamin D3) (Vitamin D3) 1,000 Unit Capsule 1000 UNIT PO DAILY CAP Citalopram Hydrobromide (Celexa) 40 Mg Tablet 40 MG PO DAILY TAB Clopidogrel Bisulfate (Plavix) 75 Mg Tablet 75 MG PO DAILY TAB Dextromethorphan Polistirex (Delsym) 30 Mg/5 Ml Edith.er.12h 10 ML PO Q12H PRN COUGH ML Diphenoxylate HCl/Atropine (Lomotil 2.5-0.025 mg Tablet) 1 Each Tablet 1 TAB PO BID TAB Fluticasone Propionate (Fluticasone Propionate) 16 Gm [place].susp 1 SPRAY NS DAILY SPRAY Fluticasone Propionate (Fluticasone Propionate) 16 Gm [place].susp 1 SPRAY NS HS PRN CONGESTION SPRAY Hydralazine HCl (Hydralazine HCl) 10 Mg Tablet 10 MG PO TID TAB Hydralazine HCl (Hydralazine HCl) 10 Mg Tablet 10 MG PO Q6H PRN SBP>160 TAB Hydrocodone/Acetaminophen (Lortab 7.5-325 mg Tablet) 1 Each Tablet 1 TAB PO Q4H PRN HIP PAIN #15 TAB (This prescription has been renewed) Lorazepam (Ativan) 0.5 Mg Tablet 0.5 MG PO Q8H PRN ANXIETY/AGITATION TAB Lorazepam (Ativan) 0.5 Mg Tablet 0.5 MG PO BID #10 TAB (This prescription has been renewed) Lovastatin (Lovastatin) 40 Mg Tablet 40 MG PO HS TAB Metoprolol Tartrate (Metoprolol Tartrate) 100 Mg Tablet 100 MG PO BID TAB Mirtazapine (Remeron) 15 Mg Tablet 7.5 MG PO HS TAKES 1/2 (15MG) TABLET TAB Multivitamins with Iron (Daily Multivitamin with Iron) 1 Each Tablet 1 TAB PO DAILY TAB Nystatin (Nystatin) 100,000 Unit/1 Ml Oral.susp 5 ML PO QID SWISH AND SPIT PRN MOUTH PAIN/SORES ML Ondansetron HCl (Zofran) 4 Mg Tab 4 MG PO Q6H PRN NAUSEA TAB Pantoprazole Sodium (Pantoprazole Sodium) 40 Mg Tablet.dr 40 MG PO DAILY TAB Polyethylene Glycol 3350 (Miralax) 17 Gm Powd.pack 17 GM PO DAILY PRN CONSTIPATION EACH Ramipril (Ramipril) 10 Mg Capsule 10 MG PO DAILY CAP Ropinirole HCl (Ropinirole HCl) 0.5 Mg Tablet 1 MG PO HS TAKES 2 (0.5MG) TABLETS TAB Ropinirole HCl (Ropinirole HCl) 0.5 Mg Tablet 0.5-1 MG PO EVERY EVENING PRN LEG PAIN TAB Tamsulosin HCl (Flomax) 0.4 Mg Cap 0.4 MG PO BID CAP Tramadol HCl (Tramadol HCl) 50 Mg Tablet 50 MG PO Q4H PRN PAIN #15 TAB (This prescription has been renewed) Triazolam (Triazolam) 0.25 Mg Tablet 0.5 MG PO HS TAKES 2 (0.25MG) TABLETS #10 TAB (This prescription has been renewed) Vit C/E/Zinc/Lutein/Zeaxanthin ([employer] [facility]) 1 Each Tab.chew 2 TAB.CHEW PO 0800,1300 TAB Patient Instructions Goal/Follow Up Appt: Dr Menjivar in 1 week Patient Instructions: Complete antibiotics and steroids and maintain oxygen Activity & Diet Discharge Diet: Cardiac Diet Activity as Tolerated: Yes KHANG MOSQUEDA DO Apr 27, 2016 11:07
--- NOTE | 2016-04-27 11:15 | Occupational Ther Daily Note ---
OT Current Status-Daily Note Subjective No pain reported. Physician in room and states that pt. will be discharging today. Appearance Pt. in room. Agrees to shower. Mental Status/Objective Patient Orientation: Person, Place, Time, Situation Functional [place] Measure 0=Not Assessed/NA 4=Minimal Assistance 1=Total Assistance 5=Supervision or Setup 2=Maximal Assistance 6=Modified [place] 3=Moderate Assistance 7=Complete [place] ADL-Treatment Bathing (FIM): 5 (supervision to shower due to oxygen tubing.) Lower Body Dressing (FIM): 4 (Pt. requires SBA to doff socks, and min assist to don socks. Uses a sock aide at home.) Transfers (B, C, W/C) (FIM): 6 Shower Transfer(FIM): 5 Other Treatment Pt. is discharging home today. Pt. is instructed on safety with oxygen tubing, as she has not had this before. Pt. did not have street clothing available, but states that she normally uses a sock aide and dressing stick at home. Pt. plans to discharge home today with family support. Education OT Patient Education: Modified ADL techniques, Progress toward Goal/Update tx plan, Purpose of tx/functional activities, Reviewed precautions, Rehab process, Transfer techniques Teaching Recipient: Patient Teaching Methods: Demonstration, Discussion Response to Teaching: Verbalize Understanding, Return Demonstration OT Short Term Goals Short Term Goals 1=Demonstrate adherence to instructed precautions during ADL tasks. 2=Patient will verbalize/demonstrate understanding of assistive devices/ modifications for ADL. 3=Patient will improve strength/tolerance for activity to enable patient to perform ADL's. OT Power Plant Operator Goals Fdc Goals Time Frame: May 03, 2016 Eating (FIM): 6 Grooming(FIM): 6 Bathing(FIM): 5 Upper Body Dressing(FIM): 5 Lower Body Dressing(FIM): 5 Toileting(FIM): 5 Transfers (B,C,W/C) (FIM): 5 Toilet/Commode Transfer(FIM): 5 Shower Transfer(FIM): 5 Additional Goals: 1-Demonstrate ADL Tasks, 2-Verbalize Understanding, 3- ImproveStrength/[place] 1=Demonstrate adherence to instructed precautions during ADL tasks. 2=Patient will verbalize/demonstrate understanding of assistive devices/ modifications for ADL. 3=Patient will improve strength/tolerance for activity to enable patient to perform ADL's. OT Education/Plan Problem List/Assessment Assessment: Decreased Activ Tolerance Discharge Recommendations Plan/Recommendations: Discontinue OT Therapy D/C Recommendations: Home w/ Family Support, Occupational Therapy Home Care Treatment Plan/Plan of Care Treatment,Training & Education: Yes Plan of Care: ADL Retraining, Functional Mobility, UE Funct Exercise/Act Treatment Duration: May 03, 2016 Agreement: Yes Rehab Potential: Fair Time/GCodes Start Time: 09:40 Stop Time: 10:05 Total Time Billed (hr/min): 25 Billed Treatment Time 1, ADL x 2 Discharge to home G-codes selfcur-CK selfgoal-CI selfdc-CK PT/OT Therapy GCodes Therapy Functional Limitation: Physical Therapy Test(s)/Tool used to determine: Level of Assistance Scale Functional Limitation-Current Charge Code: MOBCUR Modifier: CI Functional Limitation-Goal Charge Code: MOBGOAL Modifier: CI TANK HERNANDEZ OT Apr 27, 2016 11:15
[2016-04-28] MEDS ORDERED: predniSONE 10 MG TAB PO SCH (09:00)
== END 2016-04-27 11:50 | DRG 192 ==
LOC: EDUNIT# 18:54 → ER 18:55 → UNDOADMOB 20:09 → 4TH 20:09 → OBSVTOIN 04-25 10:17 → INTOOBSV 04-25 10:17 → UNDODISIN 04-27 11:50
PROVIDERS: ADMIT Internal Medicine; ATTEND Internal Medicine
DX: J44.1 Chronic obstructive pulmonary disease with (acute) exacerbation (principal); F41.9 Anxiety disorder, unspecified; F32.9 Major depressive disorder, single episode, unspecified; I10 Essential (primary) hypertension; I25.10 Atherosclerotic heart disease of native coronary artery without angina pectoris; I08.1 Rheumatic disorders of both mitral and tricuspid valves; E78.5 Hyperlipidemia, unspecified; K21.9 Gastro-esophageal reflux disease without esophagitis; G25.81 Restless legs syndrome; N31.9 Neuromuscular dysfunction of bladder, unspecified; J02.9 Acute pharyngitis, unspecified; K59.09 Other constipation; G89.29 Other chronic pain; Z86.73 Personal history of transient ischemic attack (TIA), and cerebral infarction without residual deficits; Z79.02 Long term (current) use of antithrombotics/antiplatelets
CPT/HCPCS: 36415; 71010; 80053; 80061; 82805; 83735; 83880; 84443; 84484; 85007; 85025; 85027; 93005; 93306; 94640; 94760; 94761; 96374; 96375; 99211; G0378

== ENCOUNTER → 2016-12-14 | Outpatient (CLI) | payer MEDICARE, OTHER ==
[~2016-12-14] MED LIST changes: +ALBU2.5V4 NEB; +AMOX-355 PO; +ASPI325T32 PO; +BUDE10.2 IH; +BUSP10TA95 PO; +CALC500T7 PO; +CHOL10007 PO; +CITA40TA19 PO; +CLOP75TA69 PO; +DEXT30SU5 PO; +DIPH1TAB PO; +FLUT16SP22 NS; +HYDR-3730 PO; +HYDR-3922 PO; +LORA-404 PO; +LOVA40TA2 PO; +METO100T2 PO; +MIRT15TA PO; +MULT-52 PO; +NYST1000 PO; +ONDN4T PO; +PANT40TA3 PO; +POLY17PO6 PO; +PRED10TA22 PO; +RAMI10CA PO; +ROPI0.5T2 PO; +TAMS0.4C98 PO; +TRAM50TA2 PO; +TRIA0.2581 PO; +VIT1TAB.9 PO
--- NOTE | 2016-12-14 12:21 | Diagnostic Imaging Report ---
Three views of the thoracic spine. INDICATION: Fall. FINDINGS: There is compression deformity involving T10 and T12 vertebral bodies. This is seen study from 06/19/2014. No acute compression fracture is suggested. The alignment of the posterior spinal line is satisfactory. Mild anterior osteophytes at the lower thoracic spine evidence seen. No paraspinal soft tissue abnormalities seen. There is mild cardiomegaly. 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 Dictated by: Dictated on workstation # [id number]
--- NOTE | 2016-12-14 13:16 | Diagnostic Imaging Report ---
EXAM: 3 views of the lumbar spine. INDICATION: Fall. FINDINGS: There is right convexity scoliosis of the lumbar spine centered around L3 level. There is satisfactory alignment of the posterior spinal line. Advanced disc degenerative changes with sclerotic changes and severe disc height loss at mid and lower lumbar spine discs is seen. There is the suggestion of posterior osteophytes as well at L3/4 level. There is a compression fracture suggested at the T12 level which appears chronic. Right hip replacement seen. IMPRESSION: Right convexity scoliosis with severe disc degenerative changes in the mid and lower lumbar spine levels. Dictated by: Dictated on workstation # [id number]
== END ==
LOC: RAD 10:26
DX: M48.54XA Collapsed vertebra, not elsewhere classified, thoracic region, initial encounter for fracture (principal); M41.26 Other idiopathic scoliosis, lumbar region; M51.36 Other intervertebral disc degeneration, lumbar region
CPT/HCPCS: 72072; 72100

== ENCOUNTER 2017-06-18 05:33 | Outpatient (CLI) | payer MEDICARE, OTHER ==
[~2017-06-18] VITALS: Ht 165.1 cm; Wt 70.8 kg
[~2017-06-18 05:33] MED LIST changes: +HYDR-34 PO; -HYDR-3816 PO; +METO100T12 PO; -METO100T2 PO
[2017-06-19] MEDS ORDERED: HYDR-3816 PO (13:36)
[2017-06-19] MEDS ORDERED: ROPI1TAB2 PO (13:36)
[2017-06-19] MEDS ORDERED: CITA10TA7 PO (13:36)
[2017-06-19] MEDS ORDERED: OMEP40CA36 PO (13:36)
[2017-06-19] MEDS ORDERED: LACT1CAP72 PO (13:36)
[2017-06-19] MEDS ORDERED: LORA0.5T PO (13:36)
[2017-06-19] MEDS ORDERED: TRIA0.2581 PO (13:36)
[2017-06-19] MEDS ORDERED: BUSP5TAB59 PO (13:36)
== END 2017-06-18 15:00 ==
LOC: PREOP 05:33
PROVIDERS: ATTEND Surgery
DX: Z01.818 Encounter for other preprocedural examination (principal); Z12.11 Encounter for screening for malignant neoplasm of colon; Z80.0 Family history of malignant neoplasm of digestive organs

== ENCOUNTER 2017-06-25 07:21 | Day surgery (SDC) | payer MEDICARE, OTHER ==
[~2017-06-25] VITALS: Ht 165.1 cm; Wt 70.8 kg
[~2017-06-25 07:21] MED LIST changes: +BUSP5TAB59 PO; +CITA10TA7 PO; +HYDR-3816 PO; +LACT1CAP72 PO; +LORA0.5T PO; +OMEP40CA36 PO; +ROPI1TAB2 PO
[2017-06-25] MEDS ORDERED: NS IV 500 ML 500 ML IV PRN (07:31)
[2017-06-25] MEDS ORDERED: NS IV 500 ML 500 ML ONE (07:34)
[2017-06-25] MEDS ORDERED: NALOXONE 0.4 MG/ML 1 ML (NARCAN) VIAL IVP PRN (07:45)
[2017-06-25] MEDS ORDERED: FLUMAZENIL (ROMAZICON) 0.1 MG/ML 5 ML VIAL INJ PRN (07:45)
[2017-06-25 07:48] VITALS: BP 148/65
[2017-06-25] MEDS ORDERED: fentaNYL INJECTION 100 MCG/2 ML AMP ONE ×2 (08:27)
[2017-06-25] MEDS ORDERED: MIDAZOLAM 2 MG/2 ML (VERSED) VIAL ONE ×3 (08:27→08:28)
[2017-06-25] MEDS: fentaNYL INJECTION 100 MCG/2 ML AMP IVP PRN ×3 (08:30→08:52)
[2017-06-25] MEDS: MIDAZOLAM 2 MG/2 ML (VERSED) VIAL IVP PRN ×2 (08:43→08:49)
--- NOTE | 2017-06-25 09:04 | History & Physicial ---
History of Present Illness History of Present Illness Reason for visit/HPI to undergo screening colonoscopy Date of Admission 06/25/17 Date Seen by Provider: June 25, 2017 Time Seen by Provider: 07:50 I consulted on this patient on 06/25/17 08:43 Attending Physician Shanika Rehman MD Admitting Physician Sal[place] Menjivar MD Consult Allergies and Home Medications Allergies Coded Allergies: azithromycin (Verified Allergy, Severe, EDEMA, HIVES, 06/25/17) Home Medications Albuterol Sulfate 2.5 Mg/3 Ml Vial.neb, 2.5 MG NEB 0700,1500, (Reported) Albuterol Sulfate 2.5 Mg/3 Ml Vial.neb, 2.5 MG NEB DAILY PRN for SHORTNESS OF BREATH, (Reported) Aspirin 325 Mg Tablet.dr, 325 MG PO BID, (Reported) Budesonide/Formoterol Fumarate 10.2 Gm Hfa.aer.ad, 2 PUFF IH BID, (Reported) Buspirone HCl 5 Mg Tablet, 5 MG PO BID, (Reported) Calcium Carbonate 200 Mg Tab.chew, 2 TAB.CHEW PO Q4H PRN for INDIGESTION, ( Reported) Cholecalciferol (Vitamin D3) 1,000 Unit Capsule, 1,000 UNIT PO DAILY, (Reported) Citalopram Hydrobromide 10 Mg Tablet, 30 MG PO DAILY, (Reported) take 3 (10mg) tabs Clopidogrel Bisulfate 75 Mg Tablet, 75 MG PO DAILY, (Reported) Dextromethorphan Polistirex 30 Mg/5 Ml Edith.er.12h, 10 ML PO Q12H PRN for COUGH, (Reported) Diphenoxylate HCl/Atropine 1 Each Tablet, 1 TAB PO BID, (Reported) Fluticasone Propionate 16 Gm [place].susp, 1 SPRAY NS DAILY, (Reported) Fluticasone Propionate 16 Gm [place].susp, 1 SPRAY NS HS PRN for CONGESTION, ( Reported) Hydralazine HCl 10 Mg Tablet, 10 MG PO BID, (Reported) Hydralazine HCl 10 Mg Tablet, 10 MG PO Q6H PRN for SBP>160, (Reported) Hydrocodone/Acetaminophen 1 Each Tablet, 1 EACH PO Q4M PRN for PAIN-MILD TO MODERATE, (Reported) Lactobacillus Combo No.10 1 Each Capsule, 1 EACH PO BID, (Reported) Lorazepam 0.5 Mg Tablet, 0.5 MG PO TID, (Reported) Lorazepam 0.5 Mg Tablet, 0.5 MG PO Q8H PRN for ANXIETY, (Reported) in addition to scheduled doses Lovastatin 40 Mg Tablet, 40 MG PO HS, (Reported) Metoprolol Tartrate 100 Mg Tablet, 100 MG PO BID, (Reported) Mirtazapine 15 Mg Tablet, 7.5 MG PO HS, (Reported) TAKES 1/2 (15MG) TABLET Multivitamins with Iron 1 Each Tablet, 1 TAB PO DAILY, (Reported) Nystatin 100,000 Unit/1 Ml Oral.susp, 5 ML PO QID PRN for MOUTH PAIN/SORES, ( Reported) SWISH AND SPIT Omeprazole 40 Mg Capsule.dr, 40 MG PO DAILY, (Reported) Ondansetron HCl 4 Mg Tab, 4 MG PO Q6H PRN for NAUSEA, (Reported) Polyethylene Glycol 3350 17 Gm Powd.pack, 17 GM PO DAILY PRN for CONSTIPATION, ( Reported) Ramipril 10 Mg Capsule, 10 MG PO DAILY, (Reported) Ropinirole HCl 0.5 Mg Tablet, 0.5-1 MG PO EVERY EVENING PRN for LEG PAIN, ( Reported) Ropinirole HCl 1 Mg Tablet, 1 MG PO HS, (Reported) Tamsulosin HCl 0.4 Mg Cap, 0.4 MG PO BID, (Reported) Triazolam 0.25 Mg Tablet, 0.5 MG PO HS, (Reported) take 2 (.25mg) tabs Vit C/E/Zinc/Lutein/Zeaxanthin 1 Each Tab.chew, 2 TAB.CHEW PO 0800,1300, ( Reported) Patient Home Medication List Home Medication List Reviewed: Yes Past Dhmmmyt-Zobsds-Ceubgd Hx Patient Social History Marrital Status: Employed/Student: retired Alcohol Use: Denies Use Recreational Drug Use: No Smoking Status: Never a Smoker 2nd Hand Smoke Exposure: No Recent Foreign Travel: No Contact w/other who traveled: No Recent Hopitalizations: No Recent Infectious Disease Expo: No Immunizations Up To Date Tetanus Booster (TDap): Unknown Date of Pneumonia Vaccine: Feb 20, 2004 Date of Influenza Vaccine: Nov 25, 2016 Seasonal Allergies Seasonal Allergies: No Surgeries Yes Hysterectomy Respiratory Yes Asthma Currently Using CPAP: No Currently Using BIPAP: No Cardiovascular Yes Coronary Artery Disease, High Cholesterol, Hypertension Neurological Yes Stroke Reproductive System Hx Reproductive Disorders: No Sexually Transmitted Disease: No HIV/AIDS: No Female Reproductive Disorders: Denies Genitourinary No Bladder Infection, Neurogenic Bladder Gastrointestinal Yes Gastroesophageal Reflux, Chronic Constipation Musculoskeletal Yes (restless leg syndrome) Endocrine History of Endocrine Disorders: No HEENT History of HEENT Disorders: No Loss of Vision: Bilateral Hearing Impairment: Hard of Hearing Cancer No Psychosocial History of Psychiatric Problem: Yes Behavioral Health Disorders: Anxiety, Depression Integumentary History of Skin or Integumenta: No Family Medical History Significant Family History: No Pertinent Family Hx Constitutional: no symptoms reported EENTM: no symptoms reported Respiratory: no symptoms reported, cough Cardiovascular: no symptoms reported Gastrointestinal: LLQ, abdominal pain (LLQ) Genitourinary: no symptoms reported Musculoskeletal: no symptoms reported Skin: no symptoms reported Psychiatric/Neurological: No Symptoms Reported Physical Exam Vital Signs Vital Signs - First Documented 06/25/17 07:48 Temp 97.7 Pulse 76 Resp 18 B/P (MAP) 148/65 (92) Pulse Ox 95 O2 Delivery Room Air Capillary Refill : General Appearance: No Apparent Distress Neck: Normal Inspection Respiratory: Lungs Clear Cardiovascular: Regular Rate, Rhythm Gastrointestinal: Non Tender, Soft Rectal: Deferred Extremity: Normal Inspection Neurologic/Psychiatric: Oriented x3 Skin: Warm/Dry Assessment/Plan Assessment and Plan lady to undergo screening colonoscopy. Left lower quadrant pain possibly due to diverticulosis. Admission Diagnosis Admission Status: Other (Outpt Proc) SHANIKA REHMAN MD June 25, 2017 9:04 am
--- NOTE | 2017-06-25 09:05 | Conscious Sedation/ASA ---
Conscious Sedation Pre-Proced Time Reviewed: 07:51 ASA Class: 2 Airway Mallampati Classification: ([place] appropriate class) I. II. III, IV Lungs Heart ASA score ASA 1: a normal healthy patient ASA 2: a patient with a mild systemic disease (mid diabetes, controlled hypertension, obesity ASA 3: a patient with a severe systemic disease that limits activity (angina , COPD, prior Myocardial infarction) ASA 4: a patient with an incapacitating disease that is a constant threat to life (CHF, renal failure) ASA 5: a moribund patient not expected to survive 24 hrs. (ruptured aneurysm) ASA 6: a declared brain patient whose organs are being harvested. For emergent operations, add the letter E after the classification Grade 1 Sedation Plan: Discussed options with patient/fam Note The patient is an appropriate candidate to undergo the planned procedure, sedation, and anesthesia. The patient immediately re-assessed prior to indication. SHANIKA PRAJAPATI MD June 25, 2017 9:04 am
--- NOTE | 2017-06-25 09:06 | Endo Procedure Record ---
Endo Procedure Report Date of Procedure Last Colonoscopy: Yes June 25, 2017 Surgeon (s) SHANIKA PRAJAPATI MD Post Procedure/Op Diagnosis Sigmoid diverticulosis Procedure Performed Colonoscopy to cecum Description of Procedure Anesthesia Type: Conscious Sedation Specimen(s) collected/removed none Description of the Procedure Indication for the procedure: This lady came in for screening colonoscopy. Informed consent was obtained after reviewing the procedure in detail. Description of procedure: She was placed in left lateral decubitus position and her vital signs were monitored. Conscious sedation was achieved using Versed and fentanyl. Examination of the perianal area revealed mild excoriation of the skin. Digital examination was otherwise unremarkable. The colonoscope was then introduced into the rectum and advanced all the way up to the cecum The scope was then withdrawn slowly and the mucosa examined in a systematic fashion. Finding: Very few sigmoid diverticula. She tolerated the procedure reasonably well and was taken back to the nursing area in a stable condition. Impression: Screening colonoscopy. No polyps. Copy Copies To 1: SHELBY MARTIN MD, XAVIER M MD June 25, 2017 9:06 am
--- NOTE | 2017-06-25 09:09 | Discharge Inst-Simple/Standard ---
Discharge Inst-Standard Discharge Medications New, Converted or Re-Newed RX: Other Patient Instructions/Follow Up Plan of Care/Instructions/FU: High fiber diet. Activity as Tolerated: Yes Discharge Diet: No Restrictions SHANIKA PRAJAPATI MD June 25, 2017 9:09 am
[2017-06-25 09:49] VITALS: BP 137/59
[2017-06-25 10:30] VITALS: BP 137/59
== END 2017-06-25 10:30 | disposition home or self-care (01) ==
LOC: ENDO 07:21
PROVIDERS: ATTEND Surgery
DX: Z12.11 Encounter for screening for malignant neoplasm of colon (principal); K57.30 Diverticulosis of large intestine without perforation or abscess without bleeding; I25.10 Atherosclerotic heart disease of native coronary artery without angina pectoris; E78.00 Pure hypercholesterolemia, unspecified; I10 Essential (primary) hypertension; K21.9 Gastro-esophageal reflux disease without esophagitis; K59.09 Other constipation; N31.9 Neuromuscular dysfunction of bladder, unspecified; F41.9 Anxiety disorder, unspecified; F32.9 Major depressive disorder, single episode, unspecified; Z79.899 Other long term (current) drug therapy; Z79.82 Long term (current) use of aspirin; Z88.1 Allergy status to other antibiotic agents

== ENCOUNTER 2018-12-24 08:43 | Emergency (ER) | payer MEDICARE, OTHER ==
[~2018-12-24] VITALS: Ht 152 cm; Wt 60.7 kg
[~2018-12-24 08:43] MED LIST changes: -RAMI10CA PO; +RAMI10CA69 PO
--- NOTE | 2018-12-24 09:55 | ED EENT ---
History of Present Illness General Chief Complaint: Nasal Problems Stated Complaint: NOSE BLEED Nursing Triage Note: AMB TO ROOM WITH DAUGHTER FROM [address] APX 0800 ONSET OF NOSEBLEED FROM R NARE. ON ADMIT NO BLEEDING NOTED. Source: patient Exam Limitations: no limitations (LUZ RODRIGUEZ) History of Present Illness Date Seen by Provider: Dec 24, 2018 Time Seen by Provider: 09:16 Initial Comments This is a 88 y/o female anticoagulated on Clopidogrel and ASA here from [facility] with epistaxis out of R nare which onset this AM while pt was playing on her Ipad. Pt denies any preceding trauma or finger manipulation. denies any recent URIs. Timing/Duration: abrupt Location: nose Prearrival Treatment: squeezing nostrils Associated Symptoms: denies symptoms (LUZ RODRIGUEZ) Initial Comments Here with report of nosebleed this morning. She has these occasionally. She had it from the right naris morning but it stopped on the way here and subsequently has not restarted. She is on Plavix. Timing/Duration: abrupt Prearrival Treatment: squeezing nostrils Associated Symptoms: denies symptoms (EVGENY ROSA MD) Allergies and Home Medications Allergies Coded Allergies: azithromycin (Verified Allergy, Severe, EDEMA, HIVES, 06/25/17) bacitracin (Verified Allergy, Unknown, 12/24/18) chocolate flavor (Verified Allergy, Unknown, 12/24/18) iodine (Verified Allergy, Unknown, 12/24/18) neomycin (Verified Allergy, Unknown, 12/24/18) polymyxin B (Verified Allergy, Unknown, 12/24/18) Home Medications Albuterol Sulfate 2.5 Mg/3 Ml Vial.neb, 2.5 MG NEB 0700,1500, (Reported) Albuterol Sulfate 2.5 Mg/3 Ml Vial.neb, 2.5 MG NEB DAILY PRN for SHORTNESS OF BREATH, (Reported) Aspirin 325 Mg Tablet.dr, 325 MG PO BID, (Reported) Budesonide/Formoterol Fumarate 10.2 Gm Hfa.aer.ad, 2 PUFF IH BID, (Reported) Buspirone HCl 5 Mg Tablet, 5 MG PO BID, (Reported) Calcium Carbonate 200 Mg Tab.chew, 2 TAB.CHEW PO Q4H PRN for INDIGESTION, (Repo rted) Cholecalciferol (Vitamin D3) 1,000 Unit Capsule, 1,000 UNIT PO DAILY, (Reported) Citalopram Hydrobromide 10 Mg Tablet, 30 MG PO DAILY, (Reported) take 3 (10mg) tabs Clopidogrel Bisulfate 75 Mg Tablet, 75 MG PO DAILY, (Reported) Dextromethorphan Polistirex 30 Mg/5 Ml Edith.er.12h, 10 ML PO Q12H PRN for COUGH, (Reported) Diphenoxylate HCl/Atropine 1 Each Tablet, 1 TAB PO BID, (Reported) Fluticasone Propionate 16 Gm [place].susp, 1 SPRAY NS DAILY, (Reported) Fluticasone Propionate 16 Gm [place].susp, 1 SPRAY NS HS PRN for CONGESTION, (Re ported) Hydralazine HCl 10 Mg Tablet, 10 MG PO BID, (Reported) Hydralazine HCl 10 Mg Tablet, 10 MG PO Q6H PRN for SBP>160, (Reported) Hydrocodone/Acetaminophen 1 Each Tablet, 1 EACH PO Q4M PRN for PAIN-MILD TO MODERATE, (Reported) Lactobacillus Combo No.10 1 Each Capsule, 1 EACH PO BID, (Reported) Lorazepam 0.5 Mg Tablet, 0.5 MG PO TID, (Reported) Lorazepam 0.5 Mg Tablet, 0.5 MG PO Q8H PRN for ANXIETY, (Reported) in addition to scheduled doses Lovastatin 40 Mg Tablet, 40 MG PO HS, (Reported) Metoprolol Tartrate 100 Mg Tablet, 100 MG PO BID, (Reported) Mirtazapine 15 Mg Tablet, 7.5 MG PO HS, (Reported) TAKES 1/2 (15MG) TABLET Multivitamins with Iron 1 Each Tablet, 1 TAB PO DAILY, (Reported) Nystatin 100,000 Unit/1 Ml Oral.susp, 5 ML PO QID PRN for MOUTH PAIN/SORES, (Reported) SWISH AND SPIT Omeprazole 40 Mg Capsule.dr, 40 MG PO DAILY, (Reported) Ondansetron HCl 4 Mg Tab, 4 MG PO Q6H PRN for NAUSEA, (Reported) Polyethylene Glycol 3350 17 Gm Powd.pack, 17 GM PO DAILY PRN for CONSTIPATION, (Reported) Ramipril 10 Mg Capsule, 10 MG PO DAILY, (Reported) Ropinirole HCl 0.5 Mg Tablet, 0.5-1 MG PO EVERY EVENING PRN for LEG PAIN, (Re ported) Ropinirole HCl 1 Mg Tablet, 1 MG PO HS, (Reported) Tamsulosin HCl 0.4 Mg Cap, 0.4 MG PO BID, (Reported) Triazolam 0.25 Mg Tablet, 0.5 MG PO HS, (Reported) take 2 (.25mg) tabs Vit C/E/Zinc/Lutein/Zeaxanthin 1 Each Tab.chew, 2 TAB.CHEW PO 0800,1300, (Reported) Patient Home Medication List Home Medication List Reviewed: Yes (EVGENY ROSA MD) Review of Systems Review of Systems Constitutional: No chills, No diaphoresis, No dizziness, No fever Eyes: Denies Drainage, Denies Inflammation Ears: Denies Dizziness, Denies Pain Nose: epistaxis (R nare); denies purulent discharge, denies previous injury Throat: denies swelling, denies discharge Respiratory: No cough, No dyspnea on exertion, No hemoptysis, No short of breath Cardiovascular: No chest pain, No edema, No palpitations Gastrointestinal: No abdominal pain, No constipation, No diarrhea Skin: No dryness, No pruritus, No rash Hematologic/Lymphatic: Denies Anemia, Denies Blood Clots, Denies Easy Bruising (LUZ RODRIGUEZ [facility]) Ears: No Symptoms Reported Nose: epistaxis (R nare); denies pain Respiratory: no symptoms reported Cardiovascular: no symptoms reported (EVGENY ROSA MD) Past Blnuozs-Adwafa-Etkqon Hx Past Med/Social Hx: Reviewed Nursing Past Med/Soc Hx (EVGENY ROSA MD) Patient Social History Alcohol Use: Denies Use Recreational Drug Use: No Smoking Status: Never a Smoker 2nd Hand Smoke Exposure: No Recent Foreign Travel: No Contact w/Someone Who Travel: No Recent Infectious Disease Expo: No Recent Hopitalizations: No (LUZ RODRIGUEZ [facility] [facility]) Immunizations Up To Date Tetanus Booster (TDap): Unknown Date of Pneumonia Vaccine: Feb 20, 2004 Date of Influenza Vaccine: Nov 25, 2016 (LUZ RODRIGUEZ [facility] [place]) Seasonal Allergies Seasonal Allergies: No (LUZ RODRIGUEZ [facility] [place]) Past Medical History Surgeries: Yes Hysterectomy Respiratory: Yes COPD Currently Using CPAP: No Currently Using BIPAP: No Cardiac: Yes Coronary Artery Disease, High Cholesterol, Hypertension Neurological: Yes Stroke Reproductive Disorders: No Female Reproductive Disorders: Denies Sexually Transmitted Disease: No HIV/AIDS: No Genitourinary: No Bladder Infection, Neurogenic Bladder Gastrointestinal: Yes Gastroesophageal Reflux, Chronic Constipation Musculoskeletal: Yes (restless leg syndrome) Endocrine: No HEENT: No Loss of Vision: Bilateral Hearing Impairment: Hard of Hearing Cancer: No Psychosocial: Yes Anxiety, Depression Integumentary: No Blood Disorders: No (LUZ RODRIGUEZ [facility] [place]) Family Medical History Reviewed Nursing Family Hx (EVGENY ROSA MD) No Pertinent Family Hx (LUZ RODRIGUEZ) Physical Exam Vital Signs Vital Signs - First Documented 12/24/18 08:51 Temp 37.3 Pulse 80 Resp 18 B/P (MAP) 145/60 (88) Pulse Ox 97 O2 Delivery Room Air (EVGENY ROSA MD) Height, Weight, BMI Height: 5'5.00" Weight: 156lbs. 0.0oz. [id number]; 26.00 BMI Method:Stated General Appearance: WD/WN, no apparent distress Eyes: bilateral eye normal inspection, bilateral eye PERRL, bilateral eye EOMI Ears: bilateral ear canal normal, bilateral ear TM normal Nose: No active bleeding; dried blood, other (source of bleeding: R distal nare; no active bleeding at this time; clot drainage visualize in pharynx) Mouth/Throat: No excessive drooling, No pharynx swelling, No pharynx tenderness Neck: non-tender, full range of motion, supple, normal inspection Cardiovascular: normal peripheral pulses, regular rate, rhythm, no edema, no gallop, no JVD, no murmur Respiratory: chest non-tender, lungs clear, normal breath sounds, no respiratory distress, no accessory muscle use Neurologic/Psychiatric: alert, oriented x 3 Skin: normal color, warm/dry (LUZ RODRIGUEZ [facility]) General Appearance: WD/WN, no apparent distress Nose: other (source of bleeding: R distal nare; no active bleeding at this time; clot drainage visualize in pharynx) Neck: full range of motion, supple Cardiovascular: regular rate, rhythm, no murmur Respiratory: lungs clear, normal breath sounds (EVGENY ROSA MD) Progress/Results/Core Measures Results/Orders Vital Signs/I&O 12/24/18 12/24/18 08:51 10:04 Temp 37.3 Pulse 80 67 Resp 18 18 B/P (MAP) 145/60 (88) 142/78 Pulse Ox 97 98 O2 Delivery Room Air (EVGENY ROSA MD) Blood Pressure Mean: 88 POS Progress Progress Note : Progress Note Seen and evaluated. Source of bleeding visualized in R distal nare. Bleeding stopped en-route. No active bleeding at this time. Explained the role of dry hot or cold weather in causing spontaneous nosebleeds. Explained the risks with regards to being on anticoagulants. Recommended nasal saline sprays for dryness and to resolve residual clots in nares. Also recommended humidifier for her room and f/u with her regular doctor. Plan for discharge was discussed with pt and daughter. The understand and agree with plan. [facility] Progress Note : Progress Note I have seen and evaluated the patient and agree with above except as indicated. I have directed the plan of care. Bleeding is stopped. Nasal clamp given. She will follow-up with Dr. Pruitt. Discharged home with return precautions. Patient and family verbalize understanding instructions and agreement with plan. (EVGNEY ROSA MD) Departure Impression Primary Impression: Epistaxis Disposition: 01 HOME, SELF-CARE Condition: Improved Departure-Patient Inst. Decision time for Depature: 09:56 (EVGENY ROSA MD) Referrals: SHELBY MARTIN MD (PCP/Family) Primary Care Physician Patient Instructions: Nosebleeds (DC) Add. Discharge Instructions: All discharge instructions reviewed with patient and/or family. Voiced under standing. You may use the drry-bia-piosmei nasal saline spray to each nostril as often as needed to keep nose from being dry. Use humidified air and her room. Follow-up with Dr. Pruitt for further evaluation as needed. Do not blow your nose for the next day or 2 to help prevent the nosebleed from recurring. If you do have a nosebleed, you may use the clamp on the nose as instructed. Return for persistent bleeding, weakness, vomiting, breathing problems or other concerns as needed. LUZ RODRIGUEZ MED STUDEN Dec 24, 2018 09:55 EVGENY DO MD Dec 24, 2018 09:57 POS
[2018-12-24 10:04] VITALS: BP 142/78
== END 2018-12-24 10:04 | disposition home or self-care (01) ==
LOC: EDUNIT# 08:43 → ER 08:44
DX: R04.0 Epistaxis (principal); I10 Essential (primary) hypertension; I25.10 Atherosclerotic heart disease of native coronary artery without angina pectoris; E78.00 Pure hypercholesterolemia, unspecified; J44.9 Chronic obstructive pulmonary disease, unspecified; F32.9 Major depressive disorder, single episode, unspecified; F41.9 Anxiety disorder, unspecified; K21.9 Gastro-esophageal reflux disease without esophagitis; Z86.73 Personal history of transient ischemic attack (TIA), and cerebral infarction without residual deficits; Z90.710 Acquired absence of both cervix and uterus; Z79.82 Long term (current) use of aspirin; Z79.02 Long term (current) use of antithrombotics/antiplatelets; Z88.1 Allergy status to other antibiotic agents; Z88.8 Allergy status to other drugs, medicaments and biological substances; Z79.51 Long term (current) use of inhaled steroids
CPT/HCPCS: 99281

== ENCOUNTER 2019-03-11 08:09 | Emergency (ER) | payer MEDICARE ==
[~2019-03-11] VITALS: Ht 157 cm; Wt 57.0 kg
[~2019-03-11 08:09] MED LIST changes: +OMEP40CA27 PO; -OMEP40CA36 PO; -TAMS0.4C98 PO; +TMSL.4C PO; -TRAM50TA2 PO; +TRM50T PO
[2019-03-11 08:28] LABS: BASOPHILS % (AUTO) 0 % (0-10); EOSINOPHILS # (AUTO) 0.1 10^3/uL (0.0-0.3); EOSINOPHILS % (AUTO) 2 % (0-10); HEMATOCRIT 34 % (35-52); LYMPHOCYTES # (AUTO) 0.7 X 10^3 (1.0-4.0); LYMPHOCYTES % (AUTO) 12 % (12-44); MEAN CORPUSCULAR HEMOGLOBIN 29 PG (25-34); MEAN CORPUSCULAR HGB CONC 33 G/DL (32-36); MEAN CORPUSCULAR VOLUME 89 FL (80-99); MEAN PLATELET VOLUME 9.4 FL (7.4-10.4); MONOCYTES # (AUTO) 0.3 X 10^3 (0.0-1.0); MONOCYTES % (AUTO) 6 % (0-12); NEUTROPHILS # (AUTO) 4.3 X 10^3 (1.8-7.8); NEUTROPHILS % (AUTO) 80 % (42-75); PLATELET COUNT 223 10^3/uL (130-400); RED CELL DISTRIBUTION WIDTH 14.6 % (10.0-14.5); WHITE BLOOD COUNT 5.4 10^3/uL (4.3-11.0)
[2019-03-11 08:43] LABS: INR 1.1 (0.8-1.4); PROTHROMBIN TIME PATIENT 14.1 SEC (12.2-14.7)
[2019-03-11 08:45] LABS: ALANINE AMINOTRANSFERASE 39 U/L (0-55); ALBUMIN 3.8 GM/DL (3.2-4.5); ALKALINE PHOSPHATASE 69 U/L (40-136); BILIRUBIN,TOTAL 0.7 MG/DL (0.1-1.0); BUN/CREATININE RATIO 27; CALCIUM 9.6 MG/DL (8.5-10.1); CARBON DIOXIDE 25 MMOL/L (21-32); CHLORIDE 104 MMOL/L (98-107); CREATININE SERUM 0.75 MG/DL (0.60-1.30); GFR ESTIMATED > 60; GLUCOSE 99 MG/DL (70-105); POTASSIUM 3.8 MMOL/L (3.6-5.0); SODIUM 137 MMOL/L (135-145); TOTAL PROTEIN 6.3 GM/DL (6.4-8.2)
--- NOTE | 2019-03-11 08:45 | Diagnostic Imaging Report ---
INDICATION: Shortness of air and chest tightness. TIME OF EXAM: 8:34 AM Correlation is made with prior chest from 04/24/2016. FINDINGS: The heart size is normal. The pulmonary vascularity is unremarkable. The lungs are clear. No infiltrate, effusion or pneumothorax is detected. IMPRESSION: No acute cardiopulmonary process is detected. Dictated by: Dictated on workstation # [id number]
--- NOTE | 2019-03-11 08:53 | ED Respiratory ---
General Chief Complaint: Respiratory Problems Stated Complaint: CHEST TIGHTNESS;SOA Nursing Triage Note: ARRIVED VIA EMS FROM [facility]. COMPLAINS OF SOA AND CHEST TIGHTNESS SINCE THRUSDAY. (NARENDRA CABRERA MEDICAL STUDENT) Source: patient Exam Limitations: no limitations (JUDITH ADAIR MD) History of Present Illness Initial Comments Ms. Colindres is an 88-year-old female presenting via ambulance for dyspnea. Patient states that for the last 5 days she has been feeling short of breath. She cannot identify any aggravating/alleviating factors and states that [facility]. During the last 5 days she is also feeling weak, congested, and has a cough that is productive. She cannot tell the color of the mucus she produces because she swallows it. Patient also states that she is feeling very stressed lately. Patient denies chest pain or hemoptysis. She denies recent fevers or chills. PMH: Patient has a history of COPD. She reports that she is compliant with her medications. She denies any significant cardiac history. (NARENDRA CABRERA MEDICAL STUDENT) Date Seen by Provider: Mar 11, 2019 Time Seen by Provider: 08:11 (JUDITH ADAIR MD) Allergies and Home Medications Allergies Coded Allergies: azithromycin (Verified Allergy, Severe, EDEMA, HIVES, 06/25/17) bacitracin (Verified Allergy, Unknown, 12/24/18) chocolate flavor (Verified Allergy, Unknown, 12/24/18) iodine (Verified Allergy, Unknown, 12/24/18) neomycin (Verified Allergy, Unknown, 12/24/18) polymyxin B (Verified Allergy, Unknown, 12/24/18) Home Medications Albuterol Sulfate 2.5 Mg/3 Ml Vial.neb, 2.5 MG NEB 0700,1500, (Reported) Albuterol Sulfate 2.5 Mg/3 Ml Vial.neb, 2.5 MG NEB DAILY PRN for SHORTNESS OF BREATH, (Reported) Aspirin 325 Mg Tablet.dr, 325 MG PO BID, (Reported) Budesonide/Formoterol Fumarate 10.2 Gm Hfa.aer.ad, 2 PUFF IH BID, (Reported) Buspirone HCl 5 Mg Tablet, 5 MG PO BID, (Reported) Calcium Carbonate 200 Mg Tab.chew, 2 TAB.CHEW PO Q4H PRN for INDIGESTION, (Reported) Cholecalciferol (Vitamin D3) 1,000 Unit Capsule, 1,000 UNIT PO DAILY, (Reported) Citalopram Hydrobromide 10 Mg Tablet, 30 MG PO DAILY, (Reported) take 3 (10mg) tabs Clopidogrel Bisulfate 75 Mg Tablet, 75 MG PO DAILY, (Reported) Dextromethorphan Polistirex 30 Mg/5 Ml Edith.er.12h, 10 ML PO Q12H PRN for COUGH, (Reported) Diphenoxylate HCl/Atropine 1 Each Tablet, 1 TAB PO BID, (Reported) Fluticasone Propionate 16 Gm [place].susp, 1 SPRAY NS DAILY, (Reported) Fluticasone Propionate 16 Gm [place].susp, 1 SPRAY NS HS PRN for CONGESTION, (Reported) Hydralazine HCl 10 Mg Tablet, 10 MG PO BID, (Reported) Hydralazine HCl 10 Mg Tablet, 10 MG PO Q6H PRN for SBP>160, (Reported) Hydrocodone/Acetaminophen 1 Each Tablet, 1 EACH PO Q4M PRN for PAIN-MILD TO MODERATE, (Reported) Lactobacillus Combo No.10 1 Each Capsule, 1 EACH PO BID, (Reported) Lorazepam 0.5 Mg Tablet, 0.5 MG PO TID, (Reported) Lorazepam 0.5 Mg Tablet, 0.5 MG PO Q8H PRN for ANXIETY, (Reported) in addition to scheduled doses Lovastatin 40 Mg Tablet, 40 MG PO HS, (Reported) Metoprolol Tartrate 100 Mg Tablet, 100 MG PO BID, (Reported) Mirtazapine 15 Mg Tablet, 7.5 MG PO HS, (Reported) TAKES 1/2 (15MG) TABLET Multivitamins with Iron 1 Each Tablet, 1 TAB PO DAILY, (Reported) Nystatin 100,000 Unit/1 Ml Oral.susp, 5 ML PO QID PRN for MOUTH PAIN/SORES, (Reported) SWISH AND SPIT Omeprazole 40 Mg Capsule.dr, 40 MG PO DAILY, (Reported) Ondansetron 4 Mg Tab.rapdis, 4 MG SL Q4H PRN for NAUSEA/VOMITING Prescribed by: JUDITH GARCÍA on 03/11/19 1002 Ondansetron HCl 4 Mg Tab, 4 MG PO Q6H PRN for NAUSEA, (Reported) Oseltamivir Phosphate 75 Mg Cap, 75 MG PO BID Prescribed by: JUDITH GARCÍA on 03/11/19 1002 Polyethylene Glycol 3350 17 Gm Powd.pack, 17 GM PO DAILY PRN for CONSTIPATION, (Reported) Ramipril 10 Mg Capsule, 10 MG PO DAILY, (Reported) Ropinirole HCl 0.5 Mg Tablet, 0.5-1 MG PO EVERY EVENING PRN for LEG PAIN, (Reported) Ropinirole HCl 1 Mg Tablet, 1 MG PO HS, (Reported) Tamsulosin HCl 0.4 Mg Cap, 0.4 MG PO BID, (Reported) Triazolam 0.25 Mg Tablet, 0.5 MG PO HS, (Reported) take 2 (.25mg) tabs Vit C/E/Zinc/Lutein/Zeaxanthin 1 Each Tab.chew, 2 TAB.CHEW PO 0800,1300, (R eported) Patient Home Medication List Home Medication List Reviewed: Yes (JUDITH ADAIR MD) Review of Systems Review of Systems Constitutional: no symptoms reported EENTM: no symptoms reported Respiratory: see HPI Cardiovascular: no symptoms reported Gastrointestinal: no symptoms reported Genitourinary: no symptoms reported Musculoskeletal: no symptoms reported Skin: no symptoms reported Psychiatric/Neurological: No Symptoms Reported Hematologic/Lymphatic: No Symptoms Reported Immunological/Allergic: no symptoms reported (JUDITH ADAIR MD) Past Okfzpiv-Hcoykt-Awcrxn Hx Past Med/Social Hx: Reviewed Nursing Past Med/Soc Hx (JUDITH ADAIR MD) Patient Social History Alcohol Use: Denies Use Recreational Drug Use: No Smoking Status: Never a Smoker 2nd Hand Smoke Exposure: No Recent Foreign Travel: No Contact w/Someone Who Travel: No Recent Infectious Disease Expo: No Recent Hopitalizations: No (NARENDRA CABRERA MEDICAL STUDENT) Immunizations Up To Date Tetanus Booster (TDap): Unknown Date of Pneumonia Vaccine: Feb 20, 2004 Date of Influenza Vaccine: Nov 25, 2016 (NARENDRA CABRERA MEDICAL STUDENT) Seasonal Allergies Seasonal Allergies: No (NARENDRA CABRERA MEDICAL STUDENT) Past Medical History Surgeries: Yes Hysterectomy Respiratory: Yes COPD Currently Using CPAP: No Currently Using BIPAP: No Cardiac: Yes Coronary Artery Disease, High Cholesterol, Hypertension Neurological: Yes Stroke Reproductive Disorders: No Female Reproductive Disorders: Denies Sexually Transmitted Disease: No HIV/AIDS: No Genitourinary: No Bladder Infection, Neurogenic Bladder Gastrointestinal: Yes Gastroesophageal Reflux, Chronic Constipation Musculoskeletal: Yes (restless leg syndrome) Endocrine: No HEENT: No Loss of Vision: Bilateral Hearing Impairment: Hard of Hearing Cancer: No Psychosocial: Yes Anxiety, Depression Integumentary: No Blood Disorders: No (NARENDRA CABRERA MEDICAL STUDENT) Family Medical History No Pertinent Family Hx (NARENDRA CABRERA MEDICAL STUDENT) Physical Exam Vital Signs - First Documented 03/11/19 08:09 Temp 36.8 Pulse 71 Resp 16 B/P (MAP) 139/62 (87) Pulse Ox 98 O2 Delivery Room Air (JUDITH ADAIR MD) Capillary Refill : Less Than 3 Seconds (NARENDRA CABRERA MEDICAL STUDENT) Height: 5'5.00" Weight: 156lbs. 0.0oz. 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, no motor/sensory deficits, alert, normal mood/affect, oriented x 3 Skin: normal color, warm/dry (JUDITH ADAIR MD) Focused Exam Lactate Level 03/11/19 08:40: Lactic Acid Level 1.23 (JUDITH ADAIR MD) Lactic Acid Level Laboratory Tests Test 03/11/19 08:40 Lactic Acid Level 1.23 MMOL/L (0.50-2.00) (JUDITH ADAIR MD) Progress/Results/Core Measures Suspected Sepsis Recent Fever Within 48 Hours: No Infection Criteria Present: Suspected New Infection New/Unexplained Altered Menta: No Sepsis Screen: No Definite Risk SIRS Temperature: Pulse: 71 Respiratory Rate: 16 Laboratory Tests 03/11/19 08:15: White Blood Count 5.4 Blood Pressure 139 /62 Mean: 87 03/11/19 08:40: Laboratory Tests 03/11/19 08:15: Creatinine 0.75, Platelet Count 223, Total Bilirubin 0.7 (NARENDRA CABRERA MEDICAL STUDENT) Results/Orders Lab Results Laboratory Tests Test 03/11/19 08:15 03/11/19 08:40 Range/Units White Blood Count 5.4 4.3-11.0 10^3/uL Red Blood Count 3.80 L 4.35-5.85 10^6/uL Hemoglobin 11.0 L 11.5-16.0 G/DL Hematocrit 34 L 35-52 % Mean Corpuscular Volume 89 80-99 FL Mean Corpuscular Hemoglobin 29 25-34 PG Mean Corpuscular Hemoglobin Concent 33 32-36 G/DL Red Cell Distribution Width 14.6 H 10.0-14.5 % Platelet Count 223 130-400 10^3/uL Mean Platelet Volume 9.4 7.4-10.4 FL Neutrophils (%) (Auto) 80 H 42-75 % Lymphocytes (%) (Auto) 12 12-44 % Monocytes (%) (Auto) 6 0-12 % Eosinophils (%) (Auto) 2 0-10 % Basophils (%) (Auto) 0 0-10 % Neutrophils # (Auto) 4.3 1.8-7.8 X 10^3 Lymphocytes # (Auto) 0.7 L 1.0-4.0 X 10^3 Monocytes # (Auto) 0.3 0.0-1.0 X 10^3 Eosinophils # (Auto) 0.1 0.0-0.3 10^3/uL Basophils # (Auto) 0.0 0.0-0.1 10^3/uL Prothrombin Time 14.1 12.2-14.7 SEC INR Comment 1.1 0.8-1.4 Activated Partial Thromboplast Time 32 24-35 SEC Sodium Level 137 135-145 MMOL/L Potassium Level 3.8 3.6-5.0 MMOL/L Chloride Level 104 98-107 MMOL/L Carbon Dioxide Level 25 21-32 MMOL/L Anion Gap 8 5-14 MMOL/L Blood Urea Nitrogen 20 H 7-18 MG/DL Creatinine 0.75 0.60-1.30 MG/DL Estimat Glomerular Filtration Rate > 60 BUN/Creatinine Ratio 27 Glucose Level 99 70-105 MG/DL Calcium Level 9.6 8.5-10.1 MG/DL Corrected Calcium 9.8 8.5-10.1 MG/DL Total Bilirubin 0.7 0.1-1.0 MG/DL Aspartate Amino Transf (AST/SGOT) 22 5-34 U/L Alanine Aminotransferase (ALT/SGPT) 39 0-55 U/L Alkaline Phosphatase 69 40-136 U/L Total Protein 6.3 L 6.4-8.2 GM/DL Albumin 3.8 3.2-4.5 GM/DL Lactic Acid Level 1.23 0.50-2.00 MMOL/L (JUDITH ADAIR MD) Micro Results Microbiology 03/11/19 Blood Culture - Preliminary, Resulted No growth 03/11/19 Influenza Types A,B Antigen (ELIOT) - Final, Complete 03/11/19 Blood Culture - Preliminary, Resulted No growth (JUDITH ADAIR MD) My Orders Orders - JUDITH ADAIR MD Ekg Tracing (03/11/19 08:11) Cbc With Automated Diff (03/11/19 08:17) Comprehensive Metabolic Panel (03/11/19 08:17) Blood Culture (03/11/19 08:17) Protime With Inr (03/11/19 08:17) Partial Thromboplastin Time (03/11/19 08:17) Chest 1 View, Ap/Pa Only (03/11/19 08:17) Ed Iv/Invasive Line Start (03/11/19 08:17) Ed Iv/Invasive Line Start (03/11/19 08:17) Vital Signs Adult Sepsis Patie Q15M (03/11/19 08:17) O2 (03/11/19 08:17) Remove Rings In Anticipation O (03/11/19 08:17) Lactic Acid Analyzer (03/11/19 08:17) Influenza A And B Antigens (03/11/19 08:17) (JUDITH ADAIR MD) Vital Signs/I&O 03/11/19 03/11/19 08:09 10:10 Temp 36.8 36.8 Pulse 71 72 Resp 16 16 B/P (MAP) 139/62 (87) 135/68 Pulse Ox 98 98 O2 Delivery Room Air Room Air (JUDITH ADAIR MD) Vital Signs/I&O Capillary Refill : Less Than 3 Seconds (NARENDRA CABRERA MEDICAL STUDENT) Blood Pressure Mean: 87 ECG Initial ECG Impression Date: Mar 11, 2019 Initial ECG Impression Time: 08:11 Initial ECG Rate: 71 Initial ECG Rhythm: Normal Sinus Comment Sinus rhythm with no ST elevation or depression. Right bundle branch block. No axis deviation. (JUDITH ADAIR MD) Diagnostic Imaging Diagonstic Imaging: Xray Plain Films/CT/US/NM/MRI: chest Comments Chest x-ray viewed by me and report reviewed. See report below: NAME: BANDAR COLINDRES [facility] REC#: [id number] PT STATUS: DEP ER : 1930 PHYSICIAN: JUDITH ADAIR MD ADMIT DATE: 03/11/19/ER Signed Date of Exam:03/11/19 CHEST 1 VIEW, AP/PA ONLY INDICATION: Shortness of air and chest tightness. TIME OF EXAM: 8:34 AM Correlation is made with prior chest from 04/24/2016. FINDINGS: The heart size is normal. The pulmonary vascularity is unremarkable. The lungs are clear. No infiltrate, effusion or pneumothorax is detected. IMPRESSION: No acute cardiopulmonary process is detected. Dictated by: Dictated on workstation # [id number] Dict: 03/11/19 0839 Trans: 03/11/19 1558 [id number] Interpreted by: GAYLA LACEY MD Electronically signed by: GAYLA LACEY MD 03/11/19 1558 (JUDITH ADAIR MD) Departure Impression Primary Impression: Influenza A Additional Impression: COPD (chronic obstructive pulmonary disease) Qualified Codes: J44.9 - Chronic obstructive pulmonary disease, unspecified Disposition: 01 HOME, SELF-CARE Condition: Improved Departure-Patient Inst. Decision time for Depature: 09:59 (JUDITH ADAIR MD) Referrals: SHELBY MARTIN MD (PCP/Family) Primary Care Physician Patient Instructions: Flu Add. Discharge Instructions: Drink plenty of clear liquids. Complete the 10 doses of Tamiflu as prescribed. Follow-up with your primary care provider in a few days for a repeat checkup. Return to the emergency room if your symptoms are worsening despite treatment. If you develop nausea or vomiting, use Zofran as prescribed. Use your breathing treatments every 4 hours until follow-up to prevent COPD problems. All discharge instructions reviewed with patient and/or family. Voiced understanding. Scripts Ondansetron (Ondansetron Odt) 4 Mg Tab.rapdis 4 MG SL Q4H PRN for NAUSEA/VOMITING, #10 TAB Prov: JUDITH ADAIR MD 03/11/19 Oseltamivir Phosphate (Tamiflu) 75 Mg Cap 75 MG PO BID, #10 CAP Prov: JUDITH ADAIR MD 03/11/19 I have personally interviewed and examined this patient along with AYO Quezada. I agree with MSAdam history, physical, assessment, and documentation with the following additions. Septic workup was pursued. Patient was found to have a clear chest x-ray and no evidence of pneumonia. However, influenza screen was positive. Although patient is about 5 days into her illness, Tamiflu was initiated because of her high risk category due to comorbidities of heart disease, COPD, and advanced age. (JUDITH ADAIR MD) Copy Copies To 1: SHELBY MARTIN MD, ALEX MEDICAL STUDENT Mar 11, 2019 08:53 JUDITH ADAIR MD Mar 11, 2019 10:02
[2019-03-11] MEDS ORDERED: OSLT75C PO (10:02)
[2019-03-11] MEDS ORDERED: ONDA4TAB11 SL (10:02)
[2019-03-11 10:10] VITALS: BP 135/68
== END 2019-03-11 10:10 | disposition home or self-care (01) ==
LOC: ER 08:09 → EDUNIT# 08:09 → ER 10:10
DX: J10.1 Influenza due to other identified influenza virus with other respiratory manifestations (principal); J44.9 Chronic obstructive pulmonary disease, unspecified; I10 Essential (primary) hypertension; F41.9 Anxiety disorder, unspecified; F32.9 Major depressive disorder, single episode, unspecified; E78.00 Pure hypercholesterolemia, unspecified; I25.10 Atherosclerotic heart disease of native coronary artery without angina pectoris; K21.9 Gastro-esophageal reflux disease without esophagitis; Z86.73 Personal history of transient ischemic attack (TIA), and cerebral infarction without residual deficits; Z88.1 Allergy status to other antibiotic agents; Z88.8 Allergy status to other drugs, medicaments and biological substances; Z79.82 Long term (current) use of aspirin; Z79.02 Long term (current) use of antithrombotics/antiplatelets; Z79.51 Long term (current) use of inhaled steroids; Z90.710 Acquired absence of both cervix and uterus
CPT/HCPCS: 36415; 71045; 80053; 83605; 85025; 85610; 85730; 87040; 87804